=== PATIENT | female | born 1940 | race Caucasian/White ===

== ENCOUNTER 2020-04-23 13:28 | Observation (INO) | payer OTHER ==
--- NOTE | 2020-04-23 13:36 | PDOC ---
History of Present Illness - General Chief Complaint: Chest Pain Stated Complaint: CHEST PAIN Time Seen by Provider: 04/23/20 13:33 Past History - Medical History Allergies/Adverse Reactions: Allergies Allergy/AdvReac Type Severity Reaction Status Date / Time No Known Allergies Allergy Verified 04/23/20 13:35 Cardiac Disorders: Yes (MN in September 2019) COPD: No Diabetes: Yes HTN: Yes Hypercholesterolemia: Yes - Reproductive History Is Patient Now?: No - Psycho-Social/Smoking History Smoking History: Never smoked Information on smoking cessation initiated: No - Substance Abuse Hx (Audit-C & DAST Scrn) How often the patient has a drink containing alcohol: Never Score: In Men: 4 or > Positive; In Women: 3 or > Positive: 0 Screen Result (Pos requires Nsg. Audit-10AR): Negative In the last yr the pt used illegal drug/Rx for NonMed reason: No Score: Yes response is considered Positive: 0 Screen Result (Positive result requires Nsg. 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 Denies diaphoresis, N/V, N/T, weakness, SOB, cough, hx DVT/PE, tearing nature, radiation to back, headache, dizziness, recent travel, recent surgeries, immobilization, leg swelling, leg pain. Pt had 1 episode of stool incontinence yesterday (no hx incontinence) but has otherwise been in [place]. ROS: Constitutional: Negative for chills, fever, fatigue, diaphoresis. HENT: Negative for sore throat, rhinorrhea, congestion. Eyes: Negative for visual disturbance. Respiratory: Negative for shortness of breath, cough, and wheezing. Cardiovascular: Positive for chest pain. Negative for palpitations, and leg swelling. Gastrointestinal: Negative for abdominal pain, blood in stool, constipation, diarrhea, nausea, and vomiting. Genitourinary: Negative for dysuria, flank pain, and hematuria. Musculoskeletal: Negative for myalgias, back pain, and neck pain. Skin: Negative for rash. Neurological: Negative for light-headedness, dizziness, vertigo, syncope, weakness, numbness and headaches. Psychiatric/Behavioral: Positive for Alzheimer's. Negative for new behavioral problems and confusion. PE: Gen: Alert, NAD, comfortable-appearing. HEENT: PERRL, EOMI, MMM, NCAT. No conjunctival pallor. Sclera are non-icteric. Oropharynx is clear. CV: Regular rate and rhythm. +systolic murmur. No rubs, or gallops. PULM: No resp distress. Good air movement, faint crackles at b/l bases, no wheezes or rhonchi. ABD: soft, NT/ND, no rebound tenderness or guarding, no CVA tenderness. BACK: No TTP of c/t/l-spine. No step-offs or deformities. MSK: No bony deformities. 2+ pulses in all extremities. NEURO: AAOx3. PERRL. No gross CN deficits. Strength and sensation grossly intact throughout. Normal gait. EXTREMITIES: No cyanosis. No clubbing. No edema. No calf tenderness. PSYCH: Normal mood and thought pattern. SKIN: Warm and dry. Normal capillary refill. No rashes. No jaundice. MDM: 79yo F hx HTN, HLD, IDDM, Alzheimer's, and CAD s/p MN in 09/2019 (at [facility]; admitted; no cath or surgeries done) presents from home with daughter/HCP c/o substernal nonradiating pressure type nonexertional sudden onset at rest chest pain exactly same as prior CP when had MN in September. Hypertensive, otherwise hemodynamically stable, afebrile. Ddx: ACS/MN, arrhythmia, PNA (low concern due to lack of cough or SOB), dissection (low concern due to resolution of CP, equal BPs b/l arms, and lack of tearing quality or radiation to back), PE (low concern due to lack of RFs, SOB, tachycardia, hypoxia), infection, metabolic derangement, anemia, MSK -ASA -Tylenol -EKG -CXR -CBC,CMP,Coags,Cardiac profile,BNP,UA -COVID -Admit Pain resolved. BP 140s/50s in both arms. -d/c nitro 04/23/20 15:08 Labs reviewed. No concerning findings. Hyperglycemia -1L NS EKG reviewed: normal sinus rhythm, 88bpm, LBBB, no TWIs, no ST elevations or depressions, no priors for comparison CXR reviewed: No acute pathology Dr Espinoza called for admission Discharge - Discharge Information Problems reviewed: Yes Clinical Impression/Diagnosis: Chest pain Condition: Stable - Admission Yes - Follow up/Referral Referrals: Andrei Moreland MD [Primary Care Provider] - - Patient Discharge Instructions - Post Discharge Activity
[2020-04-23] MEDS ORDERED: NITROGLYCERIN SUBLINGUAL 1/150 0.4 MG TAB SL ONE ×2 (13:55→19:48)
[2020-04-23] MEDS ORDERED: ACETAMINOPHEN 1000 MG/100 ML VIAL (NON FORMULARY) IVPB ONE (13:55)
[2020-04-23] MEDS ORDERED: ASPIRIN 325 MG TABLET PO ONE (13:55)
[2020-04-23] MEDS ORDERED: ACETAMINOPHEN INJECTION 100 ML IVPB ONE (14:06)
[2020-04-23] MEDS ORDERED: ASPIRIN 81 MG CHEWABLE TABLETS ONE (14:06)
[2020-04-23 14:20] LABS: BASO % 0.4 % (0-2.0); EOS % 1.3 % (0-4.5); HEMATOCRIT 43.5 % (32.4-45.2); LYMPH % 18.2 % (8-40); MCH 28.4 pg (25.7-33.7); MCHC 32.1 g/dl (32.0-36.0); MEAN CELL VOLUME 88.4 fl (80-96); MONO % 6.7 % (3.8-10.2); NEUT % 73.4 % (42.8-82.8); PLATELET COUNT 287 K/MM3 (134-434); RBC 4.92 M/mm3 (3.60-5.2); RDW 14.9 % (11.6-15.6); WHITE BLOOD COUNT 10.1 K/mm3 (4.0-10.0)
[2020-04-23] MEDS ORDERED: ASPIRIN 81 MG CHEWABLE TABLETS PO ONE (14:21)
[2020-04-23 14:26] LABS: INR 0.92 (0.83-1.09); PROTHROMBIN TIME (PATIENT) 10.9 SEC (9.7-13.0)
[2020-04-23 14:29] LABS: ACTIVATED PTT 31.4 SECONDS (25.2-36.5)
--- NOTE | 2020-04-23 14:48 | PDOC ---
Documentation entered by Mj Talbert SCRIBE, acting as scribe for Claudia Burks MD. Claudia Burks MD: This documentation has been prepared by the Gali gonsales Xhesika, SCRIBE, under my direction and personally reviewed by me in its entirety. I confirm that the documentation accurately reflects all work, treatment, procedures, and medical decision making performed by me. 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 Pt describes her CP as 8/10 in severity, constant, feels like pressure, non-radiating. Pt states her symptoms are similar to her WV she had in September. Pt also reports 1 episode of stool incontinence yesterday, which is not her normal. The patient denies shortness of breath, headache and dizziness. Denies fever, chills, cough, nausea, vomiting, diarrhea and constipation. Denies dysuria, frequency, urgency and hematuria. Allergies: NKDA PCP: Dr. Moreland - Physicial Exam PE: 04/23/20 14:46 General: nontoxic appearing Chest: trace bibasilar crackles, good air entry, no audible wheezes, NAD CVS: + s1 s2, RRR - Medical Decision Making 04/23/20 14:47 79 yo F with chest pain, recent WV, EKG with LBBB (no priors for comparison), concern for ACS vs. PNA vs. msk pain. Plan: -labs -cxr -asa -tylenol -nitro -admit tele obs This clinical encounter is taking place during a federal and state health care emergency attributable to the novel [place] Virus pandemic. The Bread Racker of the Department of Health and Human Services has declared, pursuant to the Public Health Service Act 319F-3 (42 U.S.C. 247d-6d), that a covered persons activities related to medical countermeasures against COVID-19 will be immune from liability under Federal and State law. Discharge - Discharge Information Problems reviewed: Yes Clinical Impression/Diagnosis: Chest pain Condition: Stable - Follow up/Referral Referrals: Andrei Moreland MD [Primary Care Provider] - - Patient Discharge Instructions - Post Discharge Activity
[2020-04-23 14:56] LABS: BILIRUBIN,TOTAL 0.4 mg/dL (0.2-1); BLOOD UREA NITROGEN 20.3 mg/dL (7-18); CALCIUM 9.6 mg/dL (8.5-10.1); CREATININE 1.2 mg/dL (0.55-1.3); N-TERMINAL BNP 419.8 pg/ml (5-450); TOT PROT 7.9 g/dl (6.4-8.2)
[2020-04-23] MEDS ORDERED: SODIUM CHLORIDE 0.9% 500 ML INFUS.BAG IV ONE (15:16)
--- NOTE | 2020-04-23 17:10 | HP ---
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 Denies diaphoresis, N/V, N/T, weakness, SOB, cough, hx DVT/PE, tearing nature, radiation to back, headache, dizziness, recent travel, recent surgeries, immobilization, leg swelling, leg pain. Pt had 1 episode of stool incontinence yesterday (no hx incontinence) but has otherwise been in [facility]. 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) Cardiovascular: Yes: CAD, HTN, Hyperlipdemia ...: No Endocrine: Yes: Diabetes Mellitus - Smoking History Smoking history: Never smoked Home Medications - Allergies Allergies/Adverse Reactions: Allergies Allergy/AdvReac Type Severity Reaction Status Date / Time No Known Allergies Allergy Verified 04/23/20 13:35 - Home Medications Home Medications: Ambulatory Orders Alendronate Sodium [Binosto] 70 mg PO 04/24/20 Amlodipine Besylate 04/24/20 Aspirin [Lo-Dose Aspirin EC] 81 mg PO 04/24/20 Glipizide [Glipizide ER] 10 mg PO 04/24/20 Icosapent Ethyl [Vascepa] 1 gm PO 04/24/20 Linagliptin [Tradjenta] 5 mg PO 04/24/20 Lisinopril 5 mg PO 04/24/20 Memantine HCl 10 mg PO 04/24/20 Multivitamin [Tab-A-Aakash] 1 each PO 04/24/20 Omeprazole 40 mg PO 04/24/20 Acetaminophen [Tylenol .Regular Strength -] 650 mg PO Q4H PRN tablet 04/28/20 Atorvastatin Ca [Lipitor] 40 mg PO HS #30 tablet 04/28/20 Carvedilol [Coreg -] 6.25 mg PO BID #60 tablet 04/28/20 Ranolazine [Ranexa -] 500 mg PO BID #60 tab 04/28/20 Review of Systems - Review of Systems Constitutional: denies: Chills, Fever Cardiovascular: reports: Chest Pain. denies: Palpitations, Shortness of Breath Respiratory: denies: Cough, SOB, SOB on Exertion Physical Examination Vital Signs: Vital Signs Temperature 98.1 F 04/23/20 16:00 Pulse Rate 90 04/23/20 16:00 Respiratory Rate 16 04/23/20 16:00 Blood Pressure 143/60 04/23/20 16:00 O2 Sat by Pulse Oximetry (%) 98 04/23/20 16:00 Constitutional: Yes: No Distress, Calm Cardiovascular: Yes: Regular Rate and Rhythm Respiratory: Yes: CTA Bilaterally Gastrointestinal: Yes: Normal Bowel Sounds, Soft. No: Tenderness Edema: No Neurological: Yes: Alert, Oriented Labs: CBC, BMP 04/23/20 14:04 04/23/20 14:04 Imaging - Results Chest X-ray: Image Reviewed (congestion) EKG: Image Reviewed (NSR) Problem List - Problems (1) Chest pain Code(s): R07.9 - CHEST PAIN, UNSPECIFIED Qualifiers: Chest pain type: other chest pain Qualified Code(s): R07.89 - Other chest pain; R07.8 - Other chest pain (2) Coronary artery disease Code(s): I25.10 - ATHSCL HEART DISEASE OF [place] CORONARY ARTERY W/O ANG PCTRS Qualifiers: Coronary Disease-Associated Artery/Lesion type: [place] artery [place] vs. transplanted heart: [place] heart Associated angina: without angina Qualified Code(s): I25.10 - Atherosclerotic heart disease of [place] coronary artery without angina pectoris (3) Dementia Code(s): F03.90 - UNSPECIFIED DEMENTIA WITHOUT BEHAVIORAL DISTURBANCE Qualifiers: Dementia type: Alzheimer's disease Alzheimer's disease onset: unspecified onset Dementia behavioral disturbance: without behavioral disturbance Qualified Code(s): G30.9 - Alzheimer's disease, unspecified; F02.80 - Dementia in other diseases classified elsewhere without behavioral disturbance (4) Hyperlipidemia associated with type 2 diabetes mellitus Code(s): E11.69 - TYPE 2 DIABETES MELLITUS WITH OTHER SPECIFIED COMPLICATION; E78.5 - HYPERLIPIDEMIA, UNSPECIFIED (5) Ischemic cardiomyopathy Code(s): I25.5 - ISCHEMIC CARDIOMYOPATHY Assessment/Plan PLAN Trend cardiac enzymes Admit to telemetry resume her meds will consult Cardiology check lipid panel and TSH counselled pt on medication compliance
[2020-04-23] MEDS ORDERED: ACETAMINOPHEN 325 MG TABLET (FP) PO PRN (17:14)
[2020-04-23 17:21] VITALS: BMI 27.2
--- NOTE | 2020-04-23 17:21 | CON.CARD ---
Consult Consult Specialty:: Cardiology Referred by:: Delores Duarte MD Reason for Consultation:: Chest pain - History of Present Illness Chief Complaint: Chest pain History of Present Illness: The patient is a 79 year old female with a significant PMH of HTN heart disease, IDDM, HLD, dementia, chest pain R/O [place] admission at [facility] 10/05/2019 and found to have ischemic cardiomyopathy with LAD infarct who presents to the [facility] department for chest pain similar to September admission. The patient denies shortness of breath, near or true syncope, palpitations, orthopnea, PND or LE edema. BP elevated, has not been taking meds previously discharged from [facility]. - History Source History Provided By: Patient, Medical Record Limitations to Obtaining History: Dementia - Past Medical History ...: No - Smoking History Smoking history: Never smoked Home Medications - Allergies Allergies/Adverse Reactions: Allergies Allergy/AdvReac Type Severity Reaction Status Date / Time No Known Allergies Allergy Verified 04/23/20 13:35 Review of Systems - Review of Systems Cardiovascular: reports: Chest Pain Vital Signs: Vital Signs Temperature 98.1 F 04/23/20 16:00 Pulse Rate 90 04/23/20 16:00 Respiratory Rate 16 04/23/20 16:00 Blood Pressure 143/60 04/23/20 16:00 O2 Sat by Pulse Oximetry (%) 98 04/23/20 16:00 Constitutional: Yes: No Distress, Calm Neck: Yes: Supple Respiratory: Yes: Regular, CTA Bilaterally Gastrointestinal: Yes: Normal Bowel Sounds, Soft Cardiovascular: Yes: Regular Rate and Rhythm JVD: No Carotid Bruit: No Heart Sounds: Yes: S1, S2 Murmur: Yes: Systolic Murmur, Grade 1 Edema: No - Other Data Labs, Other Data: CBC, BMP 04/23/20 14:04 04/23/20 14:04 INR, PTT INR 0.92 (0.83-1.09) 04/23/20 14:04 Troponin, BNP 04/23/20 14:04 Troponin I 0.03 B-Natriuretic Peptide 419.8 Troponin, BNP 04/23/20 14:04 Troponin I 0.03 B-Natriuretic Peptide 419.8 NSR @ 88 LBBB, LAD similar to previous 10/03/2019 Ejection Fraction %: LVEF < 40 % Imaging - Results Chest X-ray: Report Reviewed (Borderline pulm vascularity) Problem List - Problems (1) Coronary artery disease Code(s): I25.10 - ATHSCL HEART DISEASE OF [place] CORONARY ARTERY W/O ANG PCTRS Qualifiers: Coronary Disease-Associated Artery/Lesion type: [place] artery [place] vs. transplanted heart: [place] heart Associated angina: without angina Qualified Code(s): I25.10 - Atherosclerotic heart disease of [place] coronary artery without angina pectoris (2) Ischemic cardiomyopathy Code(s): I25.5 - ISCHEMIC CARDIOMYOPATHY (3) Type 2 diabetes mellitus Code(s): E11.9 - TYPE 2 DIABETES MELLITUS WITHOUT COMPLICATIONS Qualifiers: Diabetes mellitus long wall mining machine tender insulin use: with long wall mining machine tender use Diabetes mellitus complication status: with circulatory complication Diabetes mellitus complication detail: with other circulatory complications Qualified Code(s): E11.59 - Type 2 diabetes mellitus with other circulatory complications; Z79.4 - alf (current) use of insulin (4) Hyperlipidemia associated with type 2 diabetes mellitus Code(s): E11.69 - TYPE 2 DIABETES MELLITUS WITH OTHER SPECIFIED COMPLICATION; E78.5 - HYPERLIPIDEMIA, UNSPECIFIED (5) Cerebrovascular disease Code(s): I67.9 - CEREBROVASCULAR DISEASE, UNSPECIFIED (6) Old anterior myocardial infarction Code(s): I25.2 - OLD MYOCARDIAL INFARCTION (7) Chest pain Code(s): R07.9 - CHEST PAIN, UNSPECIFIED Qualifiers: Chest pain type: other chest pain Qualified Code(s): R07.89 - Other chest pain; R07.8 - Other chest pain (8) Dementia Code(s): F03.90 - UNSPECIFIED DEMENTIA WITHOUT BEHAVIORAL DISTURBANCE Qualifiers: Dementia type: Alzheimer's disease Alzheimer's disease onset: unspecified onset Dementia behavioral disturbance: without behavioral disturbance Qualified Code(s): G30.9 - Alzheimer's disease, unspecified; F02.80 - Dementia in other diseases classified elsewhere without behavioral disturbance Assessment/Plan 10/05/2019 HCT: Age-indeterminate infarcts in the left basal ganglia/internal capsule, with small lacunar infarcts noted in the right anterior thalamus and right basal ganglia. No acute hemorrhage identified. 10/06/2019 [facility] Left ventricular systolic function is moderately reduced. The ejection fraction based on measurements and visual assessment is estimated to be 35-40%. There is moderate global hypokinesis of the left ventricle. There is anterolateral wall severe hypokinesis. There is septal wall severe hypokinesis. 1. Chest pain r/o [place] 2. CAD s/p anterior [place] 3. LV systolic dysfunction 4. Hypertensive heart disease 5. Dementia 6. Old lacunar strokes P:1. Ruling out [place], check TSH, Ha1c, fasting lipid panel 2. Resume carvedilol 3.125 bid, lisinopril 5 qd, ASA 81 qd, Lipitor 40 qd with uptitration as tolerated, emphasized importance of medication compliance 3. Given her dementia, will rx conservatively with meds 4. Thank you for consultative opportunity, november f/u in office
[2020-04-23] MEDS ORDERED: NITROGLYCERIN SUBLINGUAL 1/150 0.4 MG TAB ONE (19:48)
--- NOTE | 2020-04-23 19:54 | HOSP ---
Subjective - Review of Symptoms Events since last encounter: Hospitalist Encounter Notified by the RN that the patient c/o chest pain, was asked to assess Arrived to bedside, patient is awake, alert to name at baseline. c/o chest pain midsternum Patient examined see EMR Plan: EKG- stat Troponin I Nitroglycerin sl Cardiovascular: Yes: Chest Pain Physical Examination Vital Signs: Vital Signs Temperature 98.5 F 04/23/20 18:00 Pulse Rate 89 04/23/20 18:00 Respiratory Rate 17 04/23/20 18:00 Blood Pressure 153/76 04/23/20 18:00 O2 Sat by Pulse Oximetry (%) 98 04/23/20 18:00 Constitutional: Yes: Well Nourished, Mild Distress Eyes: Yes: Conjunctiva Clear, EOM Intact, PERRL HENT: Yes: Atraumatic, Normocephalic Neck: Yes: Supple, Trachea Midline Cardiovascular: Yes: Regular Rate and Rhythm, Murmur, S1, S2, Other (CP is reproducible to palpation) Respiratory: Yes: Regular, CTA Bilaterally, On Nasal O2 Gastrointestinal: Yes: Normal Bowel Sounds, Soft ...Rectal Exam: Yes: Deferred Renal/: Yes: Incontinence Breast(s): Yes: WNL Musculoskeletal: Yes: WNL Extremities: Yes: WNL Edema: No Peripheral Pulses WNL: Yes Neurological: Yes: Confusion ...Motor Strength: WNL Psychiatric: Yes: Alert (to name) Labs: CBC, BMP 04/23/20 14:04 04/23/20 14:04 Troponin, BNP 04/23/20 14:04 Troponin I 0.03 B-Natriuretic Peptide 419.8 Current Medications Generic Name Dose Route Start Last Admin Trade Name Freq PRN Reason Stop Dose Admin Acetaminophen 650 mg 04/23/20 17:14 Tylenol - PO Q4H PRN PAIN LEVEL 4 - 6 Aspirin 81 mg 04/24/20 10:00 Asa - PO DAILY [facility] Atorvastatin Calcium 80 mg 04/23/20 22:00 Lipitor - PO HS [facility] Carvedilol 3.125 mg 04/23/20 22:00 Coreg - PO BID [facility] Lisinopril 5 mg 04/24/20 10:00 Prinivil PO DAILY [facility] Pantoprazole Sodium 40 mg 04/24/20 10:00 Protonix - PO DAILY [facility] Hospitalist Encounter Outcome: EKG reviewed- NSR, lAD with LBBBB QTC 508, no change compared to prior study Troponin I- 0.17 Per RN patient denies CP post medication Will continue to monitor, Cardiology following, PMD to resume care in am Critical Care Total Critical Care Time (in minutes): 35 Critical Care Statement: The care of this patient involved high complexity decision making to prevent further life threatening deterioration of the patient's condition and/or to evaluate & treat vital organ system(s) failure or risk of failure.
[2020-04-23] MEDS: ATORVASTATIN CA 80 MG TABLET (FP) PO SCH (21:11)
[2020-04-23] MEDS: CARVEDILOL 3.125 MG TABLET (FP) PO SCH (21:11)
[2020-04-24] MEDS ORDERED: NITROGLYCERIN SUBLINGUAL 1/150 0.4 MG TAB ONE (06:23)
[2020-04-24 06:59] LABS: BASO % 0.5 % (0-2.0); EOS % 2.3 % (0-4.5); HEMATOCRIT 38.4 % (32.4-45.2); HEMOGLOBIN 12.3 GM/dL (10.7-15.3); LYMPH % 24.7 % (8-40); MCH 28.3 pg (25.7-33.7); MCHC 32.1 g/dl (32.0-36.0); MEAN CELL VOLUME 88.4 fl (80-96); MEAN PLT VOLUME 8.6 fl (7.5-11.1); MONO % 8.6 % (3.8-10.2); NEUT % 63.9 % (42.8-82.8); PLATELET COUNT 258 K/MM3 (134-434); RBC 4.35 M/mm3 (3.60-5.2); RDW 15.1 % (11.6-15.6)
[2020-04-24 07:31] LABS: POTASSIUM 4.1 mmol/L (3.5-5.1)
[2020-04-24 07:50] LABS: ALBUMIN 3.1 g/dl (3.4-5.0); BILIRUBIN,TOTAL 0.4 mg/dL (0.2-1); BLOOD UREA NITROGEN 18.1 mg/dL (7-18); CREATININE 0.9 mg/dL (0.55-1.3); TOT PROT 6.2 g/dl (6.4-8.2)
[2020-04-24 07:54] LABS: EPI CELLS >36 /uL (0-25.1); HYALINE CASTS 8 /uL (0-3.1); URINE APPEARANCE TURBID; URINE BACTERIA >9,000 /uL (0-1359); URINE BILIRUBIN NEGATIVE (NEGATIVE); URINE COLOR YELLOW; URINE GLUCOSE (UA) 2+ (NEGATIVE); URINE KETONE NEGATIVE (NEGATIVE); URINE LEUK ESTERASE 1+ (NEGATIVE); URINE NITRITE NEGATIVE (NEGATIVE); URINE PROTEIN TRACE (NEGATIVE); URINE RBC 1 /uL (0-23.9); URINE UROBILINOGEN 0.2 mg/dL (0.2-1.0); URINE WBC 62 /uL (0-25.8)
[2020-04-24 08:26] LABS: YEAST NON SEEN (NEGATIVE)
--- NOTE | 2020-04-24 08:39 | PN ---
Progress Note, Physician History of Present Illness: NTG-responsive chest pain overnight with elevated BP, had not started beta- blockers at that point. She denies chest pain or dyspnea today. - Current Medication List Current Medications: Active Medications Acetaminophen (Tylenol -) 650 mg PO Q4H PRN PRN Reason: PAIN LEVEL 4 - 6 Aspirin (Asa -) 81 mg PO DAILY [facility] Atorvastatin Calcium (Lipitor -) 80 mg PO HS [facility] Last Admin: 04/23/20 21:11 Dose: 80 mg Documented by: Carvedilol (Coreg -) 3.125 mg PO BID [facility] Last Admin: 04/23/20 21:11 Dose: 3.125 mg Documented by: Lisinopril (Prinivil) 5 mg PO DAILY [facility] Pantoprazole Sodium (Protonix -) 40 mg PO DAILY [facility] - Objective Vital Signs: Vital Signs Temperature 98.4 F 04/24/20 06:00 Pulse Rate 79 04/24/20 06:00 Respiratory Rate 20 04/24/20 06:00 Blood Pressure 155/85 04/24/20 06:00 O2 Sat by Pulse Oximetry (%) 95 04/24/20 06:00 Constitutional: Yes: No Distress, Calm Neck: Yes: Supple Cardiovascular: Yes: Regular Rate and Rhythm Respiratory: Yes: Regular, CTA Bilaterally Gastrointestinal: Yes: Normal Bowel Sounds, Soft Edema: No Labs: CBC, BMP 04/24/20 06:00 04/24/20 06:24 INR, PTT INR 0.92 (0.83-1.09) 04/23/20 14:04 - ....Imaging EKG: Report Reviewed (Tele: NSR ECG: NSR @ 84, LAE, LBBB) Problem List - Problems (1) Coronary artery disease Code(s): I25.10 - ATHSCL HEART DISEASE OF [place] CORONARY ARTERY W/O ANG PCTRS Qualifiers: Coronary Disease-Associated Artery/Lesion type: [place] artery [place] vs. transplanted heart: [place] heart Associated angina: without angina Qualified Code(s): I25.10 - Atherosclerotic heart disease of [place] coronary artery without angina pectoris (2) Ischemic cardiomyopathy Code(s): I25.5 - ISCHEMIC CARDIOMYOPATHY (3) Type 2 diabetes mellitus Code(s): E11.9 - TYPE 2 DIABETES MELLITUS WITHOUT COMPLICATIONS Qualifiers: Diabetes mellitus local company intermodal truck driver insulin use: with chcf use Diabetes mellitus complication status: with circulatory complication Diabetes mellitus complication detail: with other circulatory complications Qualified Code(s): E11.59 - Type 2 diabetes mellitus with other circulatory complications; Z79.4 - lobsterman (current) use of insulin (4) Hyperlipidemia associated with type 2 diabetes mellitus Code(s): E11.69 - TYPE 2 DIABETES MELLITUS WITH OTHER SPECIFIED COMPLICATION; E78.5 - HYPERLIPIDEMIA, UNSPECIFIED (5) Cerebrovascular disease Code(s): I67.9 - CEREBROVASCULAR DISEASE, UNSPECIFIED (6) Old anterior myocardial infarction Code(s): I25.2 - OLD MYOCARDIAL INFARCTION (7) Chest pain Code(s): R07.9 - CHEST PAIN, UNSPECIFIED Qualifiers: Chest pain type: other chest pain Qualified Code(s): R07.89 - Other chest pain; R07.8 - Other chest pain (8) Dementia Code(s): F03.90 - UNSPECIFIED DEMENTIA WITHOUT BEHAVIORAL DISTURBANCE Qualifiers: Dementia type: Alzheimer's disease Alzheimer's disease onset: unspecified onset Dementia behavioral disturbance: without behavioral disturbance Qualified Code(s): G30.9 - Alzheimer's disease, unspecified; F02.80 - Dementia in other diseases classified elsewhere without behavioral disturbance Assessment/Plan 10/05/2019 HCT: Age-indeterminate infarcts in the left basal ganglia/internal capsule, with small lacunar infarcts noted in the right anterior thalamus and right basal ganglia. No acute hemorrhage identified. 10/06/2019 Echo @ [facility] Left ventricular systolic function is moderately reduced. The ejection fraction based on measurements and visual assessment is estimated to be 35-40%. There is moderate global hypokinesis of the left ventricle. There is anterolateral wall severe hypokinesis. There is septal wall severe hypokinesis. 1. Chest pain with demand [place] 2. CAD s/p anterior [place] 3. LV systolic dysfunction 4. Hypertensive heart disease, BP not at goal 5. Dementia 6. Old lacunar strokes 7. Type 2 DM not at goal control P:1. Trend trops to document peak 2. Resumed carvedilol 3.125 bid, lisinopril 5 qd, ASA 81 qd, Lipitor 40 qd with uptitration as tolerated, emphasized importance of medication compliance 3. Start Farxiga 10 qd given DM and cardiomyopathy, was on Lantus 15 U qd and Lispro TID AC at [facility] 3. Given her dementia, will rx conservatively with meds 4. Thank you for consultative opportunity, november f/u in office
--- NOTE | 2020-04-24 09:54 | EKG ---
Test Reason : Blood Pressure : / mmHG Vent. Rate : 088 BPM Atrial Rate : 088 BPM P-R Int : 160 ms QRS Dur : 134 ms QT Int : 394 ms P-R-T Axes : 053 -44 109 degrees QTc Int : 476 ms NORMAL SINUS RHYTHM LEFT AXIS DEVIATION LEFT BUNDLE BRANCH BLOCK ABNORMAL ECG NO PREVIOUS ECGS AVAILABLE Confirmed by ISABELA DUVAL MD ([id number]) on 04/24/2020 9:53:49 AM Referred By: Confirmed By:ISABELA DUVAL MD
--- NOTE | 2020-04-24 09:55 | EKG ---
Test Reason : Blood Pressure : / mmHG Vent. Rate : 084 BPM Atrial Rate : 084 BPM P-R Int : 170 ms QRS Dur : 132 ms QT Int : 430 ms P-R-T Axes : 054 -38 116 degrees QTc Int : 508 ms POOR DATA QUALITY, INTERPRETATION MAY BE ADVERSELY AFFECTED NORMAL SINUS RHYTHM LEFT AXIS DEVIATION LEFT BUNDLE BRANCH BLOCK ABNORMAL ECG WHEN COMPARED WITH ECG OF 23-APR-2020 13:34, NO SIGNIFICANT CHANGE WAS FOUND Confirmed by ISABELA DUVAL MD ([id number]) on 04/24/2020 9:54:24 AM Referred By: ANSHUL Confirmed By:ISABELA DUVAL MD
[2020-04-24] MEDS ORDERED: LISINOPRIL 5 MG TABLET PO SCH (10:00)
[2020-04-24] MEDS ORDERED: PT OWN MED DRAWER 7, Y5N ONE (10:24)
[2020-04-24] MEDS: CARVEDILOL 3.125 MG TABLET (FP) PO SCH (10:28)
[2020-04-24] MEDS: ASPIRIN 81 MG CHEWABLE TABLETS PO SCH (10:28)
[2020-04-24] MEDS: PANTOPRAZOLE 40 MG TABLET PO SCH (10:28)
[2020-04-24] MEDS: INSULIN SLIDING SCALE (NOVOLOG) 1 VIAL SQ SCH ×2 (12:10→17:33)
--- NOTE | 2020-04-24 12:16 | PN ---
Progress Note (short form) - Note Progress Note: had chest pain last night\ currently no pain no sob she is comfortable Vital Signs - 24 hr 04/23/20 04/23/20 04/23/20 13:30 13:31 14:20 Temperature 98.8 F Pulse Rate 93 H Pulse Rate [ 80 Apical] Respiratory 19 18 Rate Blood Pressure 203/88 H Blood Pressure 147/55 L [Left Arm] O2 Sat by Pulse 98 94 L 98 Oximetry (%) 04/23/20 04/23/20 04/23/20 16:00 17:14 18:00 Temperature 98.1 F 98.7 F 98.5 F Pulse Rate 86 89 Pulse Rate [ 90 Apical] Respiratory 16 16 17 Rate Blood Pressure 153/89 153/76 Blood Pressure 143/60 [Left Arm] O2 Sat by Pulse 98 98 98 Oximetry (%) 04/23/20 04/23/20 04/23/20 20:00 21:00 22:00 Temperature 98.5 F Pulse Rate 86 88 Pulse Rate [ Apical] Respiratory 20 Rate Blood Pressure 171/77 H 119/68 Blood Pressure [Left Arm] O2 Sat by Pulse 98 98 Oximetry (%) 04/24/20 04/24/20 04/24/20 01:57 06:00 10:00 Temperature 98.5 F 98.4 F 99 F Pulse Rate 84 79 90 Pulse Rate [ Apical] Respiratory 20 20 18 Rate Blood Pressure 141/74 155/85 150/100 Blood Pressure [Left Arm] O2 Sat by Pulse 94 L 95 95 Oximetry (%) Current Medications Generic Name Dose Route Start Last Admin Trade Name Freq PRN Reason Stop Dose Admin Acetaminophen 650 mg 04/23/20 17:14 Tylenol - PO Q4H PRN PAIN LEVEL 4 - 6 Aspirin 81 mg 04/24/20 10:00 04/24/20 10:28 Asa - PO 81 mg DAILY TELLO Administration Atorvastatin Calcium 80 mg 04/23/20 22:00 04/23/20 21:11 Lipitor - PO 80 mg HS TELLO Administration Carvedilol 6.25 mg 04/24/20 11:51 Coreg - PO BID TELLO Insulin Aspart 1 vial 04/24/20 11:00 04/24/20 12:10 Novolog Vial Sliding Scale - SQ 2 units TIDAC TELLO Administration Protocol Insulin Detemir 10 units 04/24/20 22:00 Levemir Vial SQ BID@0700,2200 [facility] Lisinopril 5 mg 04/24/20 10:00 04/24/20 10:28 Prinivil PO 5 mg DAILY TELLO Administration Pantoprazole Sodium 40 mg 04/24/20 10:00 04/24/20 10:28 Protonix - PO 40 mg DAILY TELLO Administration Laboratory Results - last 24 hr 04/23/20 04/23/20 04/23/20 14:04 14:04 14:04 WBC 10.1 H RBC 4.92 Hgb 14.0 Hct 43.5 MCV 88.4 MCH 28.4 MCHC 32.1 RDW 14.9 Plt Count 287 MPV 9.0 Absolute Neuts (auto) 7.4 Neutrophils % 73.4 Lymphocytes % 18.2 Monocytes % 6.7 Eosinophils % 1.3 Basophils % 0.4 Nucleated RBC % 0 PT with INR 10.90 INR 0.92 PTT (Actin FS) 31.4 Sodium 144 Potassium 5.0 Chloride 108 H Carbon Dioxide 28 Anion Gap 8 BUN 20.3 H Creatinine 1.2 Est GFR (CKD-EPI)AfAm 50.48 Est GFR (CKD-EPI)NonAf 43.56 POC Glucometer Random Glucose 302 H Hemoglobin A1c % Calcium 9.6 Total Bilirubin 0.4 AST 16 ALT 20 Alkaline Phosphatase 71 Creatine Kinase 66 Troponin I 0.03 B-Natriuretic Peptide 419.8 Total Protein 7.9 Albumin 4.0 Triglycerides Cholesterol Total LDL Cholesterol HDL Cholesterol TSH Urine Color Urine Appearance Urine pH Ur Specific [place] Urine Protein Urine Glucose (UA) Urine Ketones Urine Blood Urine Nitrite Urine Bilirubin Urine Urobilinogen Ur Leukocyte Esterase Urine WBC (Auto) Urine RBC (Auto) Urine Casts (Auto) U Epithel Cells (Auto) U Sm Round Cell (Auto) Urine Bacteria (Auto) Urine Yeast (Auto) 04/23/20 04/23/20 04/24/20 19:20 20:00 06:00 WBC RBC Hgb Hct MCV MCH MCHC RDW Plt Count MPV Absolute Neuts (auto) Neutrophils % Lymphocytes % Monocytes % Eosinophils % Basophils % Nucleated RBC % PT with INR INR PTT (Actin FS) Sodium Potassium Chloride Carbon Dioxide Anion Gap BUN Creatinine Est GFR (CKD-EPI)AfAm Est GFR (CKD-EPI)NonAf POC Glucometer Random Glucose Hemoglobin A1c % Calcium Total Bilirubin AST ALT Alkaline Phosphatase Creatine Kinase 63 69 Troponin I 0.15 H 0.17 H B-Natriuretic Peptide Total Protein Albumin Triglycerides Cholesterol Total LDL Cholesterol HDL Cholesterol TSH Urine Color Yellow Urine Appearance Turbid Urine pH 5.0 Ur Specific [place] 1.018 Urine Protein Trace Urine Glucose (UA) 2+ H Urine Ketones Negative Urine Blood Negative Urine Nitrite Negative Urine Bilirubin Negative Urine Urobilinogen 0.2 Ur Leukocyte Esterase 1+ H Urine WBC (Auto) 62 Urine RBC (Auto) 1 Urine Casts (Auto) 8 U Epithel Cells (Auto) >36 U Sm Round Cell (Auto) Non seen Urine Bacteria (Auto) >9,000 Urine Yeast (Auto) Non seen 04/24/20 04/24/20 04/24/20 06:00 06:24 06:24 WBC 8.0 RBC 4.35 Hgb 12.3 Hct 38.4 MCV 88.4 MCH 28.3 MCHC 32.1 RDW 15.1 Plt Count 258 MPV 8.6 Absolute Neuts (auto) 5.1 Neutrophils % 63.9 Lymphocytes % 24.7 D Monocytes % 8.6 Eosinophils % 2.3 Basophils % 0.5 Nucleated RBC % 0 PT with INR INR PTT (Actin FS) Sodium 139 Potassium 4.1 Chloride 105 Carbon Dioxide 25 Anion Gap 9 BUN 18.1 H Creatinine 0.9 Est GFR (CKD-EPI)AfAm 71.48 Est GFR (CKD-EPI)NonAf 61.67 POC Glucometer Random Glucose 136 H Hemoglobin A1c % 9.0 H Calcium 9.0 Total Bilirubin 0.4 AST 17 ALT 17 Alkaline Phosphatase 53 Creatine Kinase Troponin I B-Natriuretic Peptide Total Protein 6.2 L Albumin 3.1 L Triglycerides 223 H Cholesterol 164 Total LDL Cholesterol 106 H HDL Cholesterol 31 L TSH 2.19 Urine Color Urine Appearance Urine pH Ur Specific [place] Urine Protein Urine Glucose (UA) Urine Ketones Urine Blood Urine Nitrite Urine Bilirubin Urine Urobilinogen Ur Leukocyte Esterase Urine WBC (Auto) Urine RBC (Auto) Urine Casts (Auto) U Epithel Cells (Auto) U Sm Round Cell (Auto) Urine Bacteria (Auto) Urine Yeast (Auto) 04/24/20 12:09 WBC RBC Hgb Hct MCV MCH MCHC RDW Plt Count MPV Absolute Neuts (auto) Neutrophils % Lymphocytes % Monocytes % Eosinophils % Basophils % Nucleated RBC % PT with INR INR PTT (Actin FS) Sodium Potassium Chloride Carbon Dioxide Anion Gap BUN Creatinine Est GFR (CKD-EPI)AfAm Est GFR (CKD-EPI)NonAf POC Glucometer 245 Random Glucose Hemoglobin A1c % Calcium Total Bilirubin AST ALT Alkaline Phosphatase Creatine Kinase Troponin I B-Natriuretic Peptide Total Protein Albumin Triglycerides Cholesterol Total LDL Cholesterol HDL Cholesterol TSH Urine Color Urine Appearance Urine pH Ur Specific [place] Urine Protein Urine Glucose (UA) Urine Ketones Urine Blood Urine Nitrite Urine Bilirubin Urine Urobilinogen Ur Leukocyte Esterase Urine WBC (Auto) Urine RBC (Auto) Urine Casts (Auto) U Epithel Cells (Auto) U Sm Round Cell (Auto) Urine Bacteria (Auto) Urine Yeast (Auto) s1 s2 RRR Lungs clear No chest wall tenderness Abd- soft, NT no edema PLAN chest pain - relieved with NTG tropinins are flat trend troponins resume her meds-- pt is non compliant with the new meds that she was discharged with from [facility] resume insulin check 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 transplanted heart: [place] heart Associated angina: without angina Qualified Code(s): I25.10 - Atherosclerotic heart disease of [place] coronary artery without angina pectoris (3) Hyperlipidemia associated with type 2 diabetes mellitus Code(s): E11.69 - TYPE 2 DIABETES MELLITUS WITH OTHER SPECIFIED COMPLICATION; E78.5 - HYPERLIPIDEMIA, UNSPECIFIED (4) Type 2 diabetes mellitus Code(s): E11.9 - TYPE 2 DIABETES MELLITUS WITHOUT COMPLICATIONS Qualifiers: Diabetes mellitus termite technician insulin use: with fci use Diabetes mellitus complication status: with circulatory complication Diabetes mellitus complication detail: with other circulatory complications Qualified Code(s): E11.59 - Type 2 diabetes mellitus with other circulatory complications; Z79.4 - intermediate (current) use of insulin
[2020-04-24] MEDS: NITROGLYCERIN 2% OINTMENT - 1GM PACKET TD SCH ×2 (17:34→23:47)
[2020-04-24] MEDS: CARVEDILOL 6.25 MG TABLET (FP) PO SCH (21:30)
[2020-04-24] MEDS: ATORVASTATIN CA 80 MG TABLET (FP) PO SCH (21:31)
[2020-04-24] MEDS: RANOLAZINE E.R. 500 MG TABLET (FP) PO SCH (21:31)
[2020-04-24] MEDS: INSULIN (LEVEMIR) 100 UNITS/ML UNITS SQ SCH (21:33)
[2020-04-25] MEDS: NITROGLYCERIN 2% OINTMENT - 1GM PACKET TD SCH ×2 (06:23→12:52)
[2020-04-25] MEDS: INSULIN (LEVEMIR) 100 UNITS/ML UNITS SQ SCH ×2 (06:27→22:26)
[2020-04-25] MEDS: INSULIN SLIDING SCALE (NOVOLOG) 1 VIAL SQ SCH ×3 (06:28→17:15)
--- NOTE | 2020-04-25 08:49 | PN ---
Progress Note, Physician History of Present Illness: Low grade fever, no further recurrence of NTG-responsive chest pain with improved BP control and addition of Ranexa. She denies chest pain or dyspnea today. - Current Medication List Current Medications: Active Medications Acetaminophen (Tylenol -) 650 mg PO Q4H PRN PRN Reason: PAIN LEVEL 4 - 6 Aspirin (Asa -) 81 mg PO DAILY [facility] Last Admin: 04/24/20 10:28 Dose: 81 mg Documented by: Atorvastatin Calcium (Lipitor -) 80 mg PO HS [facility] Last Admin: 04/24/20 21:31 Dose: 80 mg Documented by: Carvedilol (Coreg -) 6.25 mg PO BID [facility] Last Admin: 04/24/20 21:30 Dose: 6.25 mg Documented by: Insulin Aspart (Novolog Vial Sliding Scale -) 1 vial SQ TIDAC [facility]; Protocol Last Admin: 04/25/20 06:28 Dose: 2 units Documented by: Insulin Detemir (Levemir Vial) 10 units SQ BID@0700,2200 [facility] Last Admin: 04/25/20 06:27 Dose: 10 unit Documented by: Lisinopril (Prinivil) 5 mg PO DAILY [facility] Last Admin: 04/24/20 10:28 Dose: 5 mg Documented by: Nitroglycerin (Nitro-Bid 2% Paste -) 1 inch TD Q6HPO [facility] Last Admin: 04/25/20 06:23 Dose: 1 inch Documented by: Pantoprazole Sodium (Protonix -) 40 mg PO DAILY [facility] Last Admin: 04/24/20 10:28 Dose: 40 mg Documented by: Ranolazine (Ranexa -) 500 mg PO BID [facility] Last Admin: 04/24/20 21:31 Dose: 500 mg Documented by: - Objective Vital Signs: Vital Signs Temperature 100.2 F H 04/25/20 06:00 Pulse Rate 90 04/25/20 06:00 Respiratory Rate 18 04/25/20 06:00 Blood Pressure 157/64 04/25/20 06:00 O2 Sat by Pulse Oximetry (%) 94 L 04/25/20 06:00 Constitutional: Yes: No Distress, Calm Neck: Yes: Supple Cardiovascular: Yes: Regular Rate and Rhythm Respiratory: Yes: Regular, CTA Bilaterally Gastrointestinal: Yes: Normal Bowel Sounds, Soft Edema: No Labs: CBC, BMP 04/24/20 06:00 04/24/20 06:24 INR, PTT INR 0.92 (0.83-1.09) 04/23/20 14:04 - ....Imaging EKG: Report Reviewed (Tele: NSR) Problem List - Problems (1) Coronary artery disease Code(s): I25.10 - ATHSCL HEART DISEASE OF [place] CORONARY ARTERY W/O ANG PCTRS Qualifiers: Coronary Disease-Associated Artery/Lesion type: [place] artery [place] vs. transplanted heart: [place] heart Associated angina: without angina Qualified Code(s): I25.10 - Atherosclerotic heart disease of [place] coronary artery without angina pectoris (2) Ischemic cardiomyopathy Code(s): I25.5 - ISCHEMIC CARDIOMYOPATHY (3) Type 2 diabetes mellitus Code(s): E11.9 - TYPE 2 DIABETES MELLITUS WITHOUT COMPLICATIONS Qualifiers: Diabetes mellitus termite control servicer insulin use: with termite control servicer use Diabetes mellitus complication status: with circulatory complication Diabetes mellitus complication detail: with other circulatory complications Qualified Code(s): E11.59 - Type 2 diabetes mellitus with other circulatory complications; Z79.4 - termite control servicer (current) use of insulin (4) Hyperlipidemia associated with type 2 diabetes mellitus Code(s): E11.69 - TYPE 2 DIABETES MELLITUS WITH OTHER SPECIFIED COMPLICATION; E78.5 - HYPERLIPIDEMIA, UNSPECIFIED (5) Cerebrovascular disease Code(s): I67.9 - CEREBROVASCULAR DISEASE, UNSPECIFIED (6) Old anterior myocardial infarction Code(s): I25.2 - OLD MYOCARDIAL INFARCTION (7) Chest pain Code(s): R07.9 - CHEST PAIN, UNSPECIFIED Qualifiers: Chest pain type: other chest pain Qualified Code(s): R07.89 - Other chest pain; R07.8 - Other chest pain (8) Dementia Code(s): F03.90 - UNSPECIFIED DEMENTIA WITHOUT BEHAVIORAL DISTURBANCE Qualifiers: Dementia type: Alzheimer's disease Alzheimer's disease onset: unspecified onset Dementia behavioral disturbance: without behavioral disturbance Qualified Code(s): G30.9 - Alzheimer's disease, unspecified; F02.80 - Dementia in other diseases classified elsewhere without behavioral disturbance Assessment/Plan 10/05/2019 HCT: Age-indeterminate infarcts in the left basal ganglia/internal capsule, with small lacunar infarcts noted in the right anterior thalamus and right basal ganglia. No acute hemorrhage identified. 10/06/2019 Echo @ [facility] Left ventricular systolic function is moderately reduced. The ejection fraction based on measurements and visual assessment is estimated to be 35-40%. There is moderate global hypokinesis of the left ventricle. There is anterolateral wall severe hypokinesis. There is septal wall severe hypokinesis. 1. Chest pain with demand [place] 2. CAD s/p anterior SD 3. LV systolic dysfunction 4. Hypertensive heart disease, BP improved 5. Dementia 6. Old lacunar strokes 7. Type 2 DM not at goal control 8. UTI P:1. Trend trops to document peak 2. Increased carvedilol 6.25 bid, lisinopril 10 qd, ASA 81 qd, Lipitor 40 qd with uptitration as tolerated, Ranexa 500 bid added, emphasized importance of medication compliance, d/c NTP 3. Start Farxiga 10 qd given DM and cardiomyopathy, was on Lantus 15 U qd and Lispro TID AC at [facility] 3. Given her dementia, will rx conservatively with meds 4. Abx course for UTI 5. Thank you for consultative opportunity, november f/u in office
[2020-04-25] MEDS: PANTOPRAZOLE 40 MG TABLET PO SCH (09:14)
[2020-04-25] MEDS: ASPIRIN 81 MG CHEWABLE TABLETS PO SCH (09:14)
[2020-04-25] MEDS: CARVEDILOL 6.25 MG TABLET (FP) PO SCH ×2 (09:15→22:26)
[2020-04-25] MEDS: RANOLAZINE E.R. 500 MG TABLET (FP) PO SCH ×2 (09:18→22:26)
[2020-04-25] MEDS: LISINOPRIL 10 MG TABLET PO SCH (09:18)
--- NOTE | 2020-04-25 10:42 | PN ---
Progress Note, Physician History of Present Illness: Pt seen/ examined chart reviewed awake/ comfortable low grade temp last night u/a ++ for uti-- will start on abx - Current Medication List Current Medications: Active Medications Acetaminophen (Tylenol -) 650 mg PO Q4H PRN PRN Reason: PAIN LEVEL 4 - 6 Aspirin (Asa -) 81 mg PO DAILY [facility] Last Admin: 04/25/20 09:14 Dose: 81 mg Documented by: Atorvastatin Calcium (Lipitor -) 80 mg PO HS [facility] Last Admin: 04/24/20 21:31 Dose: 80 mg Documented by: Carvedilol (Coreg -) 6.25 mg PO BID [facility] Last Admin: 04/25/20 09:15 Dose: 6.25 mg Documented by: Insulin Aspart (Novolog Vial Sliding Scale -) 1 vial SQ TIDAC [facility]; Protocol Last Admin: 04/25/20 06:28 Dose: 2 units Documented by: Insulin Detemir (Levemir Vial) 10 units SQ BID@0700,2200 [facility] Last Admin: 04/25/20 06:27 Dose: 10 unit Documented by: Lisinopril (Prinivil) 10 mg PO DAILY [facility] Last Admin: 04/25/20 09:18 Dose: 10 mg Documented by: Nitroglycerin (Nitro-Bid 2% Paste -) 1 inch TD Q6HPO [facility] Last Admin: 04/25/20 06:23 Dose: 1 inch Documented by: Pantoprazole Sodium (Protonix -) 40 mg PO DAILY [facility] Last Admin: 04/25/20 09:14 Dose: 40 mg Documented by: Ranolazine (Ranexa -) 500 mg PO BID [facility] Last Admin: 04/25/20 09:18 Dose: 500 mg Documented by: - Objective Vital Signs: Vital Signs Temperature 98.9 F 04/25/20 09:13 Pulse Rate 98 H 04/25/20 09:13 Respiratory Rate 19 04/25/20 09:13 Blood Pressure 124/85 04/25/20 09:13 O2 Sat by Pulse Oximetry (%) 95 04/25/20 09:13 Constitutional: Yes: No Distress Neck: Yes: Supple Cardiovascular: Yes: Regular Rate and Rhythm Respiratory: Yes: CTA Bilaterally Gastrointestinal: Yes: Soft Edema: No Neurological: Yes: Alert Labs: CBC, BMP 04/24/20 06:00 04/24/20 06:24 INR, PTT INR 0.92 (0.83-1.09) 04/23/20 14:04 Problem List - Problems (1) UTI (urinary tract infection) Code(s): N39.0 - URINARY TRACT INFECTION, SITE NOT SPECIFIED (2) Chest pain Code(s): R07.9 - CHEST PAIN, UNSPECIFIED Qualifiers: Chest pain type: other chest pain Qualified Code(s): R07.89 - Other chest pain; R07.8 - Other chest pain (3) Coronary artery disease Code(s): I25.10 - ATHSCL HEART DISEASE OF [place] CORONARY ARTERY W/O ANG PCTRS Qualifiers: Coronary Disease-Associated Artery/Lesion type: [place] artery [place] vs. transplanted heart: [place] heart Associated angina: without angina Qualified Code(s): I25.10 - Atherosclerotic heart disease of [place] coronary artery without angina pectoris (4) Dementia Code(s): F03.90 - UNSPECIFIED DEMENTIA WITHOUT BEHAVIORAL DISTURBANCE Qualifiers: Dementia type: Alzheimer's disease Alzheimer's disease onset: unspecified onset Dementia behavioral disturbance: without behavioral disturbance Qualified Code(s): G30.9 - Alzheimer's disease, unspecified; F02.80 - Dementia in other diseases classified elsewhere without behavioral disturbance (5) Hyperlipidemia associated with type 2 diabetes mellitus Code(s): E11.69 - TYPE 2 DIABETES MELLITUS WITH OTHER SPECIFIED COMPLICATION; E78.5 - HYPERLIPIDEMIA, UNSPECIFIED (6) Ischemic cardiomyopathy Code(s): I25.5 - ISCHEMIC CARDIOMYOPATHY (7) Type 2 diabetes mellitus Code(s): E11.9 - TYPE 2 DIABETES MELLITUS WITHOUT COMPLICATIONS Qualifiers: Diabetes mellitus prison insulin use: with prison use Diabetes mellitus complication status: with circulatory complication Diabetes mellitus complication detail: with other circulatory complications Qualified Code(s): E11.59 - Type 2 diabetes mellitus with other circulatory complications; Z79.4 - artificial limb fitter (current) use of insulin Assessment/Plan Continue present care discussed with nursing horta send urine culture start on abx monitor bgm Add dvt prophylaxis will follow
[2020-04-25] MEDS ORDERED: cefTRIAXone SODIUM 1 GM VIAL ONE (11:25)
[2020-04-25] MEDS ORDERED: DEXTROSE 5%-WATER - 50 ML IVPB ONE (11:25)
[2020-04-25] MEDS: ENOXAPARIN NA (PORCINE) 40 MG/0.4 ML DISP.SYRIN SQ SCH (12:27)
[2020-04-25] MEDS: CEFTRIAXONE 1 GM in DEXTROSE 5%-WATER - 50 ML IVPB SCH (15:52)
[2020-04-25] MEDS ORDERED: INSULIN (NOVOLOG) ASPART 100 UNITS/ML 10ML VIAL SQ ONE (19:21)
--- NOTE | 2020-04-25 19:25 | RAPID ---
Physical Examination Vital Signs: Vital Signs Temperature 98.4 F 04/25/20 18:00 Pulse Rate 80 04/25/20 18:00 Respiratory Rate 18 04/25/20 18:00 Blood Pressure 120/63 04/25/20 18:00 O2 Sat by Pulse Oximetry (%) 95 04/25/20 09:13 Labs: CBC, BMP 04/24/20 06:00 04/24/20 06:24 Rapid Response - Rapid Response Assessment: Rapid response paged overhead. telehealth nurse educator team responded immediately. Patient found on bathroom floor in a pool of urine by the toilet. Fall was unwitnessed Phys exam: VA 150/80, HR 80s, afebrile, RR16, SaO2 95% on RA Gen: Sitting on floor, incontinent. AAOx2 oriented to self and place but not to year CV: S1S2 wnl no mrg Pulm: CTABL Abd: Soft NTND. Extr: Small nonbleeding lac to right elbow. Generalized aching on palp of b/l LEs from thigh through feet. Neuro: Full ROM all extremities. Plan: -CT head w/o con as fall was unwitnessed and pt on lovenox -R elbow XR -B/l hip XR -CBC, CMP, Mag, repeat trop as it has been uptrending, following cardio recs to document peak -BGM: 260, 6 U novolog administered -covering hospitalist DREDGE WORKER aware
[2020-04-25 21:39] LABS: HEMATOCRIT 40.3 % (32.4-45.2); HEMOGLOBIN 13.3 GM/dL (10.7-15.3); MCH 29.1 pg (25.7-33.7); MCHC 32.9 g/dl (32.0-36.0); MEAN CELL VOLUME 88.5 fl (80-96); MEAN PLT VOLUME 9.3 fl (7.5-11.1); PLATELET COUNT 279 K/MM3 (134-434); RBC 4.56 M/mm3 (3.60-5.2); RDW 15.1 % (11.6-15.6); WHITE BLOOD COUNT 8.3 K/mm3 (4.0-10.0)
[2020-04-25 22:08] LABS: ALBUMIN 3.5 g/dl (3.4-5.0); BILIRUBIN,TOTAL 0.5 mg/dL (0.2-1); BLOOD UREA NITROGEN 20.6 mg/dL (7-18); CALCIUM 9.6 mg/dL (8.5-10.1); CREATININE 1.2 mg/dL (0.55-1.3); MAGNESIUM 2.3 mg/dL (1.8-2.4); POTASSIUM 5.1 mmol/L (3.5-5.1); TOT PROT 7.4 g/dl (6.4-8.2)
[2020-04-25] MEDS: ATORVASTATIN CA 80 MG TABLET (FP) PO SCH (22:26)
[2020-04-26] MEDS: INSULIN SLIDING SCALE (NOVOLOG) 1 VIAL SQ SCH ×3 (06:34→16:44)
[2020-04-26] MEDS: INSULIN (LEVEMIR) 100 UNITS/ML UNITS SQ SCH ×2 (06:34→21:15)
--- NOTE | 2020-04-26 09:39 | PN ---
Progress Note, Physician History of Present Illness: Pt seen/ examined Events noted s/p fall last night. awake/ comfortable x rays / ct scan reviewed Denies pain - Current Medication List Current Medications: Active Medications Acetaminophen (Tylenol -) 650 mg PO Q4H PRN PRN Reason: PAIN LEVEL 4 - 6 Aspirin (Asa -) 81 mg PO DAILY [facility] Last Admin: 04/25/20 09:14 Dose: 81 mg Documented by: Atorvastatin Calcium (Lipitor -) 80 mg PO HS [facility] Last Admin: 04/25/20 22:26 Dose: 80 mg Documented by: Carvedilol (Coreg -) 6.25 mg PO BID [facility] Last Admin: 04/25/20 22:26 Dose: 6.25 mg Documented by: Enoxaparin Sodium (Lovenox -) 40 mg SQ DAILY [facility] Last Admin: 04/25/20 12:27 Dose: 40 mg Documented by: Ceftriaxone Sodium 1 gm/ (Dextrose) 50 mls @ 200 mls/hr IVPB DAILY [facility]; Protocol Last Admin: 04/25/20 15:52 Dose: 200 mls/hr Documented by: Insulin Aspart (Novolog Vial Sliding Scale -) 1 vial SQ TIDAC [facility]; Protocol Last Admin: 04/26/20 06:34 Dose: 2 units Documented by: Insulin Detemir (Levemir Vial) 10 units SQ BID@0700,2200 [facility] Last Admin: 04/26/20 06:34 Dose: 10 unit Documented by: Lisinopril (Prinivil) 10 mg PO DAILY [facility] Last Admin: 04/25/20 09:18 Dose: 10 mg Documented by: Pantoprazole Sodium (Protonix -) 40 mg PO DAILY [facility] Last Admin: 04/25/20 09:14 Dose: 40 mg Documented by: Ranolazine (Ranexa -) 500 mg PO BID [facility] Last Admin: 04/25/20 22:26 Dose: 500 mg Documented by: - Objective Vital Signs: Vital Signs Temperature 98.4 F 04/26/20 06:00 Pulse Rate 68 04/26/20 06:00 Respiratory Rate 18 04/26/20 06:00 Blood Pressure 153/75 04/26/20 06:00 O2 Sat by Pulse Oximetry (%) 99 04/26/20 06:00 Constitutional: Yes: No Distress, Calm Neck: Yes: Supple Cardiovascular: Yes: Regular Rate and Rhythm Respiratory: Yes: CTA Bilaterally Gastrointestinal: Yes: Soft Edema: No Neurological: Yes: Other (awake/ non focal) Labs: CBC, BMP 04/25/20 21:05 04/25/20 21:05 INR, PTT INR 0.92 (0.83-1.09) 04/23/20 14:04 Problem List - Problems (1) UTI (urinary tract infection) Code(s): N39.0 - URINARY TRACT INFECTION, SITE NOT SPECIFIED (2) Chest pain Code(s): R07.9 - CHEST PAIN, UNSPECIFIED Qualifiers: Chest pain type: other chest pain Qualified Code(s): R07.89 - Other chest pain; R07.8 - Other chest pain (3) Coronary artery disease Code(s): I25.10 - ATHSCL HEART DISEASE OF [place] CORONARY ARTERY W/O ANG PCTRS Qualifiers: Coronary Disease-Associated Artery/Lesion type: [place] artery [place] vs. transplanted heart: [place] heart Associated angina: without angina Qualified Code(s): I25.10 - Atherosclerotic heart disease of [place] coronary artery without angina pectoris (4) Dementia Code(s): F03.90 - UNSPECIFIED DEMENTIA WITHOUT BEHAVIORAL DISTURBANCE Qualifiers: Dementia type: Alzheimer's disease Alzheimer's disease onset: unspecified onset Dementia behavioral disturbance: without behavioral disturbance Q ualified Code(s): G30.9 - Alzheimer's disease, unspecified; F02.80 - Dementia in other diseases classified elsewhere without behavioral disturbance (5) Hyperlipidemia associated with type 2 diabetes mellitus Code(s): E11.69 - TYPE 2 DIABETES MELLITUS WITH OTHER SPECIFIED COMPLICATION; E78.5 - HYPERLIPIDEMIA, UNSPECIFIED (6) Ischemic cardiomyopathy Code(s): I25.5 - ISCHEMIC CARDIOMYOPATHY (7) Type 2 diabetes mellitus Code(s): E11.9 - TYPE 2 DIABETES MELLITUS WITHOUT COMPLICATIONS Qualifiers: Diabetes mellitus skilled nursing insulin use: with local intermodal truck driver use Diabetes mellitus complication status: with circulatory complication Diabetes mellitus complication detail: with other circulatory complications Qualified Code(s): E11.59 - Type 2 diabetes mellitus with other circulatory complications; Z79.4 - half-way (current) use of insulin Assessment/Plan discussed with nursing staff. fall precautions Abx f/u cultures PT will continue to follow Overall condition stable but remains guarded due to multiple comorbidities. I had d/w pts daughter yesterday in detail / as well as with pts private pmd Dr. Moreland.
[2020-04-26] MEDS ORDERED: cefTRIAXone SODIUM 1 GM VIAL ONE (10:03)
[2020-04-26] MEDS ORDERED: DEXTROSE 5%-WATER - 50 ML IVPB ONE (10:03)
[2020-04-26] MEDS: PANTOPRAZOLE 40 MG TABLET PO SCH (10:14)
[2020-04-26] MEDS: ASPIRIN 81 MG CHEWABLE TABLETS PO SCH (10:15)
[2020-04-26] MEDS: RANOLAZINE E.R. 500 MG TABLET (FP) PO SCH ×2 (10:15→21:15)
[2020-04-26] MEDS: CARVEDILOL 6.25 MG TABLET (FP) PO SCH ×2 (10:15→21:14)
[2020-04-26] MEDS: LISINOPRIL 10 MG TABLET PO SCH (10:15)
[2020-04-26] MEDS: CEFTRIAXONE 1 GM in DEXTROSE 5%-WATER - 50 ML IVPB SCH (10:15)
[2020-04-26] MEDS: ENOXAPARIN NA (PORCINE) 40 MG/0.4 ML DISP.SYRIN SQ SCH (10:16)
--- NOTE | 2020-04-26 10:29 | PN ---
Progress Note, Physician Chief Complaint: Events noted Post fall last night Confusion History of Present Illness: Patient was seen and examined. Awake. Chart was reviewed Confused - Current Medication List Current Medications: Active Medications Acetaminophen (Tylenol -) 650 mg PO Q4H PRN PRN Reason: PAIN LEVEL 4 - 6 Aspirin (Asa -) 81 mg PO DAILY [facility] Last Admin: 04/26/20 10:15 Dose: 81 mg Documented by: Atorvastatin Calcium (Lipitor -) 80 mg PO HS [facility] Last Admin: 04/25/20 22:26 Dose: 80 mg Documented by: Carvedilol (Coreg -) 6.25 mg PO BID [facility] Last Admin: 04/26/20 10:15 Dose: 6.25 mg Documented by: Enoxaparin Sodium (Lovenox -) 40 mg SQ DAILY [facility] Last Admin: 04/26/20 10:16 Dose: 40 mg Documented by: Ceftriaxone Sodium 1 gm/ (Dextrose) 50 mls @ 200 mls/hr IVPB DAILY [facility]; Protocol Last Admin: 04/26/20 10:15 Dose: 200 mls/hr Documented by: Insulin Aspart (Novolog Vial Sliding Scale -) 1 vial SQ TIDAC [facility]; Protocol Last Admin: 04/26/20 06:34 Dose: 2 units Documented by: Insulin Detemir (Levemir Vial) 10 units SQ BID@0700,2200 [facility] Last Admin: 04/26/20 06:34 Dose: 10 unit Documented by: Lisinopril (Prinivil) 10 mg PO DAILY [facility] Last Admin: 04/26/20 10:15 Dose: 10 mg Documented by: Pantoprazole Sodium (Protonix -) 40 mg PO DAILY [facility] Last Admin: 04/26/20 10:14 Dose: 40 mg Documented by: Ranolazine (Ranexa -) 500 mg PO BID [facility] Last Admin: 04/26/20 10:15 Dose: 500 mg Documented by: - Objective Vital Signs: Vital Signs Temperature 98.4 F 04/26/20 06:00 Pulse Rate 68 04/26/20 06:00 Respiratory Rate 18 04/26/20 06:00 Blood Pressure 153/75 04/26/20 06:00 O2 Sat by Pulse Oximetry (%) 99 04/26/20 06:00 Neck: Yes: Supple Cardiovascular: Yes: Regular Rate and Rhythm, S1, S2 Respiratory: Yes: Diminished Gastrointestinal: Yes: Normal Bowel Sounds, Soft. No: Tenderness Edema: No Labs: CBC, BMP 04/25/20 21:05 04/25/20 21:05 Problem List - Problems (1) Cerebrovascular disease Code(s): I67.9 - CEREBROVASCULAR DISEASE, UNSPECIFIED (2) Coronary artery disease Code(s): I25.10 - ATHSCL HEART DISEASE OF [place] CORONARY ARTERY W/O ANG PCTRS Qualifiers: Coronary Disease-Associated Artery/Lesion type: [place] artery [place] vs. transplanted heart: [place] heart Associated angina: without angina Qualified Code(s): I25.10 - Atherosclerotic heart disease of [place] coronary artery with out angina pectoris (3) Dementia Code(s): F03.90 - UNSPECIFIED DEMENTIA WITHOUT BEHAVIORAL DISTURBANCE Qualifiers: Dementia type: Alzheimer's disease Alzheimer's disease onset: unspecified onset Dementia behavioral disturbance: without behavioral disturbance Qualified Code(s): G30.9 - Alzheimer's disease, unspecified; F02.80 - Dementia in other diseases classified elsewhere without behavioral disturbance (4) Ischemic cardiomyopathy Code(s): I25.5 - ISCHEMIC CARDIOMYOPATHY (5) Old anterior myocardial infarction Code(s): I25.2 - OLD MYOCARDIAL INFARCTION (6) Type 2 diabetes mellitus Code(s): E11.9 - TYPE 2 DIABETES MELLITUS WITHOUT COMPLICATIONS Qualifiers: Diabetes mellitus laborer marine terminal insulin use: with alf use Diabetes mellitus complication status: with circulatory complication Diabetes mellitus complication detail: with other circulatory complications Qualified Code(s): E11.59 - Type 2 diabetes mellitus with other circulatory complications; Z79.4 - termite exterminator (current) use of insulin (7) UTI (urinary tract infection) Code(s): N39.0 - URINARY TRACT INFECTION, SITE NOT SPECIFIED Assessment/Plan 1. Chest pain with demand ischemia 2. CAD s/p anterior [place] 3. LV systolic dysfunction 4. Hypertensive heart disease 5. OBS/Dementia 6. Old lacunar strokes 7. Type 2 DM not at goal control 8. UTI PLAN: 1. Trend troponin (peaked at 0.36 on 04/24/20 and was 0.27 yesterday) 2. Continue Carvedilol 6.25 mg BID, Lisinopril 10 mg QD, ASA 81 mg QD and reduce Lipitor to 40 mg QD with uptitration as tolerated. Continue Ranexa 500 mg BID 3. Consider Farxiga 10 mg QD given DM and cardiomyopathy. 3. Conservative therapy and fall precaution 4. Antibiotic course for UTI 5. Follow up in office [facility] if feasible as outpatient Adrian Medrano MD
[2020-04-26] MEDS: ATORVASTATIN CA 80 MG TABLET (FP) PO SCH (21:15)
[2020-04-27] MEDS: INSULIN (LEVEMIR) 100 UNITS/ML UNITS SQ SCH ×2 (06:55→21:24)
[2020-04-27] MEDS: INSULIN SLIDING SCALE (NOVOLOG) 1 VIAL SQ SCH ×3 (06:56→16:51)
--- NOTE | 2020-04-27 08:59 | PN ---
Progress Note, Physician Chief Complaint: Events noted Awake and more alert History of Present Illness: Patient was seen and examined. Awake. Chart was reviewed Denies chest pain or SOB - Current Medication List Current Medications: Active Medications Acetaminophen (Tylenol -) 650 mg PO Q4H PRN PRN Reason: PAIN LEVEL 4 - 6 Aspirin (Asa -) 81 mg PO DAILY [facility] Last Admin: 04/26/20 10:15 Dose: 81 mg Documented by: Atorvastatin Calcium (Lipitor -) 80 mg PO HS [facility] Last Admin: 04/26/20 21:15 Dose: 80 mg Documented by: Carvedilol (Coreg -) 6.25 mg PO BID [facility] Last Admin: 04/26/20 21:14 Dose: 6.25 mg Documented by: Enoxaparin Sodium (Lovenox -) 40 mg SQ DAILY [facility] Last Admin: 04/26/20 10:16 Dose: 40 mg Documented by: Ceftriaxone Sodium 1 gm/ (Dextrose) 50 mls @ 200 mls/hr IVPB DAILY [facility]; Protocol Last Admin: 04/26/20 10:15 Dose: 200 mls/hr Documented by: Insulin Aspart (Novolog Vial Sliding Scale -) 1 vial SQ TIDAC [facility]; Protocol Last Admin: 04/27/20 06:56 Dose: 2 units Documented by: Insulin Detemir (Levemir Vial) 10 units SQ BID@0700,2200 [facility] Last Admin: 04/27/20 06:55 Dose: 10 unit Documented by: Lisinopril (Prinivil) 10 mg PO DAILY [facility] Last Admin: 04/26/20 10:15 Dose: 10 mg Documented by: Pantoprazole Sodium (Protonix -) 40 mg PO DAILY [facility] Last Admin: 04/26/20 10:14 Dose: 40 mg Documented by: Ranolazine (Ranexa -) 500 mg PO BID [facility] Last Admin: 04/26/20 21:15 Dose: 500 mg Documented by: - Objective Vital Signs: Vital Signs Temperature 98.1 F 04/27/20 06:00 Pulse Rate 66 04/27/20 06:00 Respiratory Rate 20 04/27/20 06:00 Blood Pressure 138/72 04/27/20 06:00 O2 Sat by Pulse Oximetry (%) 100 04/27/20 06:00 Neck: Yes: Supple Cardiovascular: Yes: Regular Rate and Rhythm, S1, S2 Respiratory: Yes: CTA Bilaterally Gastrointestinal: Yes: Normal Bowel Sounds, Soft. No: Tenderness Edema: No Labs: CBC, BMP 04/25/20 21:05 04/25/20 21:05 Problem List - Problems (1) Cerebrovascular disease Code(s): I67.9 - CEREBROVASCULAR DISEASE, UNSPECIFIED (2) Coronary artery disease Code(s): I25.10 - ATHSCL HEART DISEASE OF [place] CORONARY ARTERY W/O ANG PCTRS Qualifiers: Coronary Disease-Associated Artery/Lesion type: [place] artery [place] vs. transplanted heart: [place] heart Associated angina: without angina Qualified Code(s): I25.10 - Atherosclerotic heart disease of [place] coronary artery without angina pectoris (3) Dementia Code(s): F03.90 - UNSPECIFIED DEMENTIA WITHOUT BEHAVIORAL DISTURBANCE Qualifiers: Dementia type: Alzheimer's disease Alzheimer's disease onset: unspecified onset Dementia behavioral disturbance: without behavioral disturbance Qualified Code(s): G30.9 - Alzheimer's disease, unspecified; F02.80 - Dementia in other diseases classified elsewhere without behavioral disturbance (4) Ischemic cardiomyopathy Code(s): I25.5 - ISCHEMIC CARDIOMYOPATHY (5) Old anterior myocardial infarction Code(s): I25.2 - OLD MYOCARDIAL INFARCTION (6) Type 2 diabetes mellitus Code(s): E11.9 - TYPE 2 DIABETES MELLITUS WITHOUT COMPLICATIONS Qualifiers: Diabetes mellitus mcc insulin use: with mcc use Diabetes mellitus complication status: with circulatory complication Diabetes mellitus complication detail: with other circulatory complications Qualified Code(s): E11.59 - Type 2 diabetes mellitus with other circulatory complications; Z79.4 - long term care phlebotomist (current) use of insulin (7) UTI (urinary tract infection) Code(s): N39.0 - URINARY TRACT INFECTION, SITE NOT SPECIFIED Assessment/Plan 1. Chest pain with demand ischemia 2. CAD s/p anterior [place] 3. LV systolic dysfunction 4. Hypertensive heart disease 5. OBS/Dementia 6. Old lacunar strokes 7. Type 2 DM not at goal control 8. UTI PLAN: 1. Trend troponin (peaked at 0.36 on 04/24/20) 2. Continue Carvedilol 6.25 mg BID, Lisinopril 10 mg QD, ASA 81 mg QD and reduce Lipitor to 40 mg QD with uptitration as tolerated. Continue Ranexa 500 mg BID 3. Consider Farxiga 10 mg QD given DM and cardiomyopathy. 3. Conservative therapy and fall precaution 4. Antibiotic course for UTI 5. [facility] Adrian Medrano MD
[2020-04-27] MEDS ORDERED: ATORVASTATIN CA 40 MG TABLET (FP) PO SCH (09:00)
[2020-04-27] MEDS ORDERED: DEXTROSE 5%-WATER - 50 ML IVPB ONE (09:20)
[2020-04-27] MEDS ORDERED: cefTRIAXone SODIUM 1 GM VIAL ONE (09:20)
[2020-04-27] MEDS: ASPIRIN 81 MG CHEWABLE TABLETS PO SCH (09:21)
[2020-04-27] MEDS: PANTOPRAZOLE 40 MG TABLET PO SCH (09:21)
[2020-04-27] MEDS: CARVEDILOL 6.25 MG TABLET (FP) PO SCH ×2 (09:21→21:26)
[2020-04-27] MEDS: ENOXAPARIN NA (PORCINE) 40 MG/0.4 ML DISP.SYRIN SQ SCH (09:21)
[2020-04-27] MEDS: CEFTRIAXONE 1 GM in DEXTROSE 5%-WATER - 50 ML IVPB SCH (09:21)
[2020-04-27] MEDS: LISINOPRIL 10 MG TABLET PO SCH (09:21)
[2020-04-27] MEDS: RANOLAZINE E.R. 500 MG TABLET (FP) PO SCH ×2 (09:21→21:26)
--- NOTE | 2020-04-27 10:17 | PN ---
Progress Note, Physician History of Present Illness: Pt seen/ examined awake and comfortable no complaints offered today Denies pain denies shortness of breath - Current Medication List Current Medications: Active Medications Acetaminophen (Tylenol -) 650 mg PO Q4H PRN PRN Reason: PAIN LEVEL 4 - 6 Aspirin (Asa -) 81 mg PO DAILY [facility] Last Admin: 04/27/20 09:21 Dose: 81 mg Documented by: Atorvastatin Calcium (Lipitor -) 40 mg PO [facility] Carvedilol (Coreg -) 6.25 mg PO BID [facility] Last Admin: 04/27/20 09:21 Dose: 6.25 mg Documented by: Enoxaparin Sodium (Lovenox -) 40 mg SQ DAILY [facility] Last Admin: 04/27/20 09:21 Dose: 40 mg Documented by: Ceftriaxone Sodium 1 gm/ (Dextrose) 50 mls @ 200 mls/hr IVPB DAILY [facility]; Protocol Last Admin: 04/27/20 09:21 Dose: 200 mls/hr Documented by: Insulin Aspart (Novolog Vial Sliding Scale -) 1 vial SQ TIDAC [facility]; Protocol Last Admin: 04/27/20 06:56 Dose: 2 units Documented by: Insulin Detemir (Levemir Vial) 10 units SQ BID@0700,2200 [facility] Last Admin: 04/27/20 06:55 Dose: 10 unit Documented by: Lisinopril (Prinivil) 10 mg PO DAILY [facility] Last Admin: 04/27/20 09:21 Dose: 10 mg Documented by: Pantoprazole Sodium (Protonix -) 40 mg PO DAILY [facility] Last Admin: 04/27/20 09:21 Dose: 40 mg Documented by: Ranolazine (Ranexa -) 500 mg PO BID [facility] Last Admin: 04/27/20 09:21 Dose: 500 mg Documented by: - Objective Vital Signs: Vital Signs Temperature 98.0 F 04/27/20 09:35 Pulse Rate 74 04/27/20 09:35 Respiratory Rate 16 04/27/20 09:35 Blood Pressure 130/59 L 04/27/20 09:35 O2 Sat by Pulse Oximetry (%) 95 04/27/20 09:35 Constitutional: Yes: No Distress, Calm Eyes: Yes: Conjunctiva Clear Neck: Yes: Supple Respiratory: Yes: CTA Bilaterally Gastrointestinal: Yes: Soft Edema: No Labs: CBC, BMP 04/25/20 21:05 10/02/20 21:05 INR, PTT INR 0.92 (0.83-1.09) 04/23/20 14:04 Problem List - Problems (1) UTI (urinary tract infection) Code(s): N39.0 - URINARY TRACT INFECTION, SITE NOT SPECIFIED (2) Chest pain Code(s): R07.9 - CHEST PAIN, UNSPECIFIED Qualifiers: Chest pain type: other chest pain Qualified Code(s): R07.89 - Other chest pain; R07.8 - Other chest pain (3) Coronary artery disease Code(s): I25.10 - ATHSCL HEART DISEASE OF [place] CORONARY ARTERY W/O ANG PCTRS Qualifiers: Coronary Disease-Associated Artery/Lesion type: [place] artery [place] vs. transplanted heart: [place] heart Associated angina: without angina Qualified Code(s): I25.10 - Atherosclerotic heart disease of [place] coronary artery without angina pectoris (4) Dementia Code(s): F03.90 - UNSPECIFIED DEMENTIA WITHOUT BEHAVIORAL DISTURBANCE Qualifiers: Dementia type: Alzheimer's disease Alzheimer's disease onset: unspecified onset Dementia behavioral disturbance: without behavioral disturbance Qualified Code(s): G30.9 - Alzheimer's disease, unspecified; F02.80 - Dementia in other diseases classified elsewhere without behavioral disturbance (5) Hyperlipidemia associated with type 2 diabetes mellitus Code(s): E11.69 - TYPE 2 DIABETES MELLITUS WITH OTHER SPECIFIED COMPLICATION; E78.5 - HYPERLIPIDEMIA, UNSPECIFIED (6) Ischemic cardiomyopathy Code(s): I25.5 - ISCHEMIC CARDIOMYOPATHY (7) Type 2 diabetes mellitus Code(s): E11.9 - TYPE 2 DIABETES MELLITUS WITHOUT COMPLICATIONS Qualifiers: Diabetes mellitus terminal operator insulin use: with fdc use Diabetes mellitus complication status: with circulatory complication Diabetes mellitus complication detail: with other circulatory complications Qualified Code(s): E11.59 - Type 2 diabetes mellitus with other circulatory complications; Z79.4 - long-term (current) use of insulin Assessment/Plan clinically stable Continue present care physical therapy Urine culture negative--- We will discontinue antibiotics after today's dose Discharge planning--- home versus short-term rehabilitation----likely tomorrow-- Discussed with nursing staff also will follow
--- NOTE | 2020-04-27 21:33 | EKG ---
Test Reason : Blood Pressure : / mmHG Vent. Rate : 070 BPM Atrial Rate : 070 BPM P-R Int : 182 ms QRS Dur : 134 ms QT Int : 434 ms P-R-T Axes : 042 -35 086 degrees QTc Int : 468 ms NORMAL SINUS RHYTHM LEFT AXIS DEVIATION LEFT BUNDLE BRANCH BLOCK ABNORMAL ECG WHEN COMPARED WITH ECG OF 23-APR-2020 19:46, NO SIGNIFICANT CHANGE WAS FOUND Confirmed by SABRINA RAMIREZ MD ([id number]) on 04/27/2020 9:33:05 PM Referred By: Confirmed By:SABRINA RAMIREZ MD
[2020-04-28] MEDS: INSULIN SLIDING SCALE (NOVOLOG) 1 VIAL SQ SCH ×2 (06:06→11:35)
[2020-04-28] MEDS: INSULIN (LEVEMIR) 100 UNITS/ML UNITS SQ SCH (06:06)
--- NOTE | 2020-04-28 08:59 | PN ---
Progress Note, Physician Chief Complaint: Events noted Not in distress History of Present Illness: Patient was seen and examined. Awake. Chart was reviewed Denies chest pain or SOB - Current Medication List Current Medications: Active Medications Acetaminophen (Tylenol -) 650 mg PO Q4H PRN PRN Reason: PAIN LEVEL 4 - 6 Aspirin (Asa -) 81 mg PO DAILY [facility] Last Admin: 04/27/20 09:21 Dose: 81 mg Documented by: Atorvastatin Calcium (Lipitor -) 40 mg PO HS [facility] Last Admin: 04/27/20 21:26 Dose: 40 mg Documented by: Carvedilol (Coreg -) 6.25 mg PO BID [facility] Last Admin: 04/27/20 21:26 Dose: 6.25 mg Documented by: Enoxaparin Sodium (Lovenox -) 40 mg SQ DAILY [facility] Last Admin: 04/27/20 09:21 Dose: 40 mg Documented by: Ceftriaxone Sodium 1 gm/ (Dextrose) 50 mls @ 200 mls/hr IVPB DAILY [facility]; Protocol Last Admin: 04/27/20 09:21 Dose: 200 mls/hr Documented by: Insulin Aspart (Novolog Vial Sliding Scale -) 1 vial SQ TIDAC [facility]; Protocol Last Admin: 04/28/20 06:06 Dose: 4 units Documented by: Insulin Detemir (Levemir Vial) 10 units SQ BID@0700,2200 [facility] Last Admin: 04/28/20 06:06 Dose: 10 unit Documented by: Lisinopril (Prinivil) 10 mg PO DAILY [facility] Last Admin: 04/27/20 09:21 Dose: 10 mg Documented by: Pantoprazole Sodium (Protonix -) 40 mg PO DAILY [facility] Last Admin: 04/27/20 09:21 Dose: 40 mg Documented by: Ranolazine (Ranexa -) 500 mg PO BID [facility] Last Admin: 04/27/20 21:26 Dose: 500 mg Documented by: - Objective Vital Signs: Vital Signs Temperature 97.8 F 04/28/20 05:00 Pulse Rate 56 L 04/28/20 05:00 Respiratory Rate 18 04/28/20 06:00 Blood Pressure 125/69 04/28/20 05:00 O2 Sat by Pulse Oximetry (%) 95 04/28/20 06:00 Neck: Yes: Supple Cardiovascular: Yes: Bradycardia, S1, S2 Respiratory: Yes: CTA Bilaterally Gastrointestinal: Yes: Normal Bowel Sounds, Soft. No: Tenderness Edema: No Additional Findings/Remarks: - Review of Systems Constitutional: denies: Chills, Fever Cardiovascular: reports: Shortness of Breath. (+) Chest Pain, de nies:Palpitations Respiratory: denies: Cough, (+) SOB. denies: Hemoptysis, Orthopnea, PND, Wheezing Gastrointestinal: denies: Abdominal Pain, Constipation, Diarrhea, Melena, Nausea, Rectal Bleeding, Vomiting Musculoskeletal: denies: Back Pain, Joint Pain Neurological: denies: Dizziness, Headache, Seizure, Syncope Problem List - Problems (1) Cerebrovascular disease Code(s): I67.9 - CEREBROVASCULAR DISEASE, UNSPECIFIED (2) Coronary artery disease Code(s): I25.10 - ATHSCL HEART DISEASE OF [place] CORONARY ARTERY W/O ANG PCTRS Qualifiers: Coronary Disease-Associated Artery/Lesion type: [place] artery [place] vs. transplanted heart: [place] heart Associated angina: without angina Qualified Code(s): I25.10 - Atherosclerotic heart disease of [place] coronary artery without angina pectoris (3) Dementia Code(s): F03.90 - UNSPECIFIED DEMENTIA WITHOUT BEHAVIORAL DISTURBANCE Qualifiers: Dementia type: Alzheimer's disease Alzheimer's disease onset: unspecified onset Dementia behavioral disturbance: without behavioral disturbance Qualified Code(s): G30.9 - Alzheimer's disease, unspecified; F02.80 - Dementia in other diseases classified elsewhere without behavioral disturbance (4) Ischemic cardiomyopathy Code(s): I25.5 - ISCHEMIC CARDIOMYOPATHY (5) Old anterior myocardial infarction Code(s): I25.2 - OLD MYOCARDIAL INFARCTION (6) Type 2 diabetes mellitus Code(s): E11.9 - TYPE 2 DIABETES MELLITUS WITHOUT COMPLICATIONS Qualifiers: Diabetes mellitus care home insulin use: with exterminator use Diabetes mellitus complication status: with circulatory complication Diabetes mellitus complication detail: with other circulatory complications Qualified Code(s): E11.59 - Type 2 diabetes mellitus with other circulatory complications; Z79.4 - group home (current) use of insulin (7) UTI (urinary tract infection) Code(s): N39.0 - URINARY TRACT INFECTION, SITE NOT SPECIFIED Assessment/Plan 1. Chest pain with demand ischemia 2. CAD s/p anterior [place] 3. LV systolic dysfunction 4. Hypertensive heart disease 5. OBS/Dementia 6. Old lacunar strokes 7. Type 2 DM not at goal control 8. UTI PLAN: 1. Trend troponin (peaked at 0.36 on 04/24/20) 2. Continue Carvedilol 6.25 mg BID, Lisinopril 10 mg QD, ASA 81 mg QD and reduce Lipitor to 40 mg QD with uptitration as tolerated. Continue Ranexa 500 mg BID 3. Consider Farxiga 10 mg QD given DM and cardiomyopathy. 3. Conservative therapy and fall precaution 4. Antibiotic course for UTI 5. [facility] Adrian Medrano MD
[2020-04-28] MEDS ORDERED: DEXTROSE 5%-WATER - 50 ML IVPB ONE (10:32)
[2020-04-28] MEDS ORDERED: cefTRIAXone SODIUM 1 GM VIAL ONE (10:32)
[2020-04-28] MEDS: ENOXAPARIN NA (PORCINE) 40 MG/0.4 ML DISP.SYRIN SQ SCH (10:35)
[2020-04-28] MEDS: CEFTRIAXONE 1 GM in DEXTROSE 5%-WATER - 50 ML IVPB SCH (10:35)
[2020-04-28] MEDS: CARVEDILOL 6.25 MG TABLET (FP) PO SCH (10:36)
[2020-04-28] MEDS: ASPIRIN 81 MG CHEWABLE TABLETS PO SCH (10:36)
[2020-04-28] MEDS: RANOLAZINE E.R. 500 MG TABLET (FP) PO SCH (10:36)
[2020-04-28] MEDS: LISINOPRIL 10 MG TABLET PO SCH (10:36)
[2020-04-28] MEDS: PANTOPRAZOLE 40 MG TABLET PO SCH (10:36)
--- NOTE | 2020-04-28 12:06 | DS ---
Physical Examination Vital Signs: Vital Signs Temperature 98 F 04/28/20 09:00 Pulse Rate 70 04/28/20 09:00 Respiratory Rate 18 04/28/20 09:00 Blood Pressure 150/80 04/28/20 09:00 O2 Sat by Pulse Oximetry (%) 95 04/28/20 09:00 Findings/Remarks: pt feels well no complains Constitutional: Yes: No Distress, Calm Neck: Yes: Supple Cardiovascular: Yes: Regular Rate and Rhythm Respiratory: Yes: CTA Bilaterally Gastrointestinal: Yes: Soft Edema: No Neurological: Yes: Alert Psychiatric: Yes: Alert Labs: CBC, BMP 04/25/20 21:05 04/25/20 21:05 Discharge Summary Problems reviewed: Yes Reason For Visit: CHEST PAIN Current Active Problems Cerebrovascular disease (Acute) Chest pain (Acute) Coronary artery disease (Acute) Dementia (Acute) Hyperlipidemia associated with type 2 diabetes mellitus (Acute) Ischemic cardiomyopathy (Acute) Old anterior myocardial infarction (Acute) Type 2 diabetes mellitus (Acute) UTI (urinary tract infection) (Acute) Hospital Course: The patient is a 79 year old female with a significant PMH of HTN heart disease, IDDM, HLD, dementia, cva ,chest pain R/O SD admission at [facility] 10/05/2019 and found to have ischemic cardiomyopathy with LAD infarct who presented to the emergency department for chest pain similar to September admission. Pt admitted to tele Cardiology followed Diagnosed with Demand ischemia. pt also found to have uti-- u/a packed with bacteria U/c was -ve but done after starting abx treated with abx overall well now Stable for d/c PT-Eval today May need str will d/w daughter medically stable for d/c Meds reconcilled d/w RN also. Condition: Stable - Instructions Referrals: Andrei Moreland MD [Primary Care Provider] - Disposition: HOME - Home Medications Comprehensive Discharge Medication List: Ambulatory Orders Alendronate Sodium [Binosto] 70 mg PO 04/24/20 Amlodipine Besylate 04/24/20 Aspirin [Lo-Dose Aspirin EC] 81 mg PO 04/24/20 Glipizide [Glipizide ER] 10 mg PO 04/24/20 Icosapent Ethyl [Vascepa] 1 gm PO 04/24/20 Linagliptin [Tradjenta] 5 mg PO 04/24/20 Lisinopril 5 mg PO 04/24/20 Memantine HCl 10 mg PO 04/24/20 Multivitamin [Tab-A-Aakash] 1 each PO 04/24/20 Omeprazole 40 mg PO 04/24/20 Acetaminophen [Tylenol .Regular Strength -] 650 mg PO Q4H PRN tablet 04/28/20 Atorvastatin Ca [Lipitor] 40 mg PO HS #30 tablet 04/28/20 Carvedilol [Coreg -] 6.25 mg PO BID #60 tablet 04/28/20 Ranolazine [Ranexa -] 500 mg PO BID #60 tab 04/28/20
[2020-04-28 14:32] VITALS: BP 133/69; PULSE 64; TEMP 98.2
== END 2020-04-28 14:47 | disposition home or self-care (01) ==
LOC: JER 13:28 → JERBED 16:30 → J4S 17:07 → J4W 04-28 05:31
PROVIDERS: ADMIT Internal Medicine; ATTEND Internal Medicine
PROC: 3E033NZ Introduction of Analgesics, Hypnotics, Sedatives into Peripheral Vein, Percutaneous Approach (ICD-10-PCS; principal; 2020-04-23)
PROC: 3E03329 Introduction of Other Anti-infective into Peripheral Vein, Percutaneous Approach (ICD-10-PCS; 2020-04-23)
PROC: 3E023GC Introduction of Other Therapeutic Substance into Muscle, Percutaneous Approach (ICD-10-PCS; 2020-04-23)
PROC: 3E013VG Introduction of Insulin into Subcutaneous Tissue, Percutaneous Approach (ICD-10-PCS; 2020-04-23)
PROC: 3E013VG Introduction of Insulin into Subcutaneous Tissue, Percutaneous Approach (ICD-10-PCS; 2020-04-23)
DX: I25.10 Atherosclerotic heart disease of native coronary artery without angina pectoris (principal); I25.5 Ischemic cardiomyopathy; E11.59 Type 2 diabetes mellitus with other circulatory complications; E78.5 Hyperlipidemia, unspecified; E11.69 Type 2 diabetes mellitus with other specified complication; I67.9 Cerebrovascular disease, unspecified; I25.2 Old myocardial infarction; R07.89 Other chest pain; R01.1 Cardiac murmur, unspecified; G30.9 Alzheimer's disease, unspecified; I10 Essential (primary) hypertension; Z86.73 Personal history of transient ischemic attack (TIA), and cerebral infarction without residual deficits; Z29.9 Encounter for prophylactic measures, unspecified
CPT/HCPCS: 36415; 70450-TC; 71046-TC-FY; 73070-TC-RT-FY; 73523-TC-FY; 80053; 80061; 81003; 82550; 82962; 83036; 83721; 83735; 83880; 84443; 84484; 85025; 85027; 85610; 85730; 87086; 93005; 93010; 99285-25; G0378; J0131; U0003

== ENCOUNTER 2020-10-21 10:21 | Observation (INO) | payer OTHER ==
[2020-10-21] MEDS ORDERED: DEXTROSE 50%-WATER 25 GM/50 ML DISP.SYRIN ONE (10:35)
[2020-10-21] MEDS ORDERED: DEXTROSE 50%-WATER - 25 GM/50 ML VIAL IVPUSH ONE (10:45)
[2020-10-21 11:51] LABS: BASO % 0.4 % (0-2.0); HEMATOCRIT 41.7 % (32.4-45.2); HEMOGLOBIN 13.5 GM/dL (10.7-15.3); LYMPH % 15.3 % (8-40); MCH 28.7 pg (25.7-33.7); MCHC 32.4 g/dl (32.0-36.0); MEAN CELL VOLUME 88.4 fl (80-96); MEAN PLT VOLUME 9.1 fl (7.5-11.1); MONO % 5.3 % (3.8-10.2); PLATELET COUNT 304 K/MM3 (134-434); RBC 4.72 M/mm3 (3.60-5.2); RDW 16.7 % (11.6-15.6); WHITE BLOOD COUNT 9.2 K/mm3 (4.0-10.0)
[2020-10-21 12:07] LABS: POTASSIUM 4.7 mmol/L (3.5-5.1)
[2020-10-21 12:09] LABS: ALBUMIN 3.5 g/dl (3.4-5.0); BLOOD UREA NITROGEN 26.6 mg/dL (7-18)
[2020-10-21 12:13] LABS: CREATININE 1.2 mg/dL (0.55-1.3)
[2020-10-21 12:14] LABS: BILIRUBIN,TOTAL 0.3 mg/dL (0.2-1); TOT PROT 7.2 g/dl (6.4-8.2)
[2020-10-21] MEDS ORDERED: INSULIN (NOVOLOG) ASPART 100 UNITS/ML 10ML VIAL SQ SCH ×2 (16:30→20:30)
[2020-10-21 18:51] LABS: PH,URINE 5.5 (5.0-8.0); URINE APPEARANCE CLOUDY; URINE BILIRUBIN NEGATIVE (NEGATIVE); URINE COLOR YELLOW; URINE GLUCOSE (UA) NEGATIVE (NEGATIVE); URINE KETONE NEGATIVE (NEGATIVE); URINE LEUK ESTERASE NEGATIVE (NEGATIVE); URINE NITRITE NEGATIVE (NEGATIVE); URINE PROTEIN NEGATIVE (NEGATIVE); URINE UROBILINOGEN 0.2 mg/dL (0.2-1.0)
[2020-10-21] MEDS ORDERED: CARVEDILOL 12.5 MG TABLET (FP) ONE (23:18)
[2020-10-21] MEDS ORDERED: ATORVASTATIN CA 40 MG TABLET (FP) ONE (23:19)
[2020-10-21] MEDS: CARVEDILOL 12.5 MG TABLET (FP) PO SCH (23:26)
[2020-10-21] MEDS: ATORVASTATIN CA 40 MG TABLET (FP) PO SCH (23:26)
[2020-10-21] MEDS: INSULIN SLIDING SCALE (NOVOLOG) 1 VIAL SQ SCH (23:27)
[2020-10-22] MEDS: CILOSTAZOL 100 MG TABLET PO SCH ×3 (00:44→22:18)
[2020-10-22 01:29] VITALS: BMI 27.1
[2020-10-22] MEDS: INSULIN SLIDING SCALE (NOVOLOG) 1 VIAL SQ SCH ×4 (06:13→22:18)
[2020-10-22] MEDS ORDERED: DEXTROSE 50%-WATER - 25 GM/50 ML VIAL IVPUSH ONE (06:15)
[2020-10-22] MEDS ORDERED: DEXTROSE 50%-WATER - 25 GM/50 ML VIAL ONE (06:22)
[2020-10-22 07:25] LABS: BASO % 0.4 % (0-2.0); EOS % 2.2 % (0-4.5); HEMATOCRIT 38.8 % (32.4-45.2); HEMOGLOBIN 12.8 GM/dL (10.7-15.3); LYMPH % 32.6 % (8-40); MCH 28.8 pg (25.7-33.7); MEAN CELL VOLUME 87.5 fl (80-96); MEAN PLT VOLUME 8.7 fl (7.5-11.1); MONO % 8.7 % (3.8-10.2); NEUT % 56.1 % (42.8-82.8); PLATELET COUNT 295 K/MM3 (134-434); RBC 4.43 M/mm3 (3.60-5.2); RDW 16.5 % (11.6-15.6); WHITE BLOOD COUNT 7.9 K/mm3 (4.0-10.0)
[2020-10-22 07:49] LABS: CHLORIDE 107 mmol/L (98-107); POTASSIUM 4.5 mmol/L (3.5-5.1); SODIUM 144 mmol/L (136-145)
[2020-10-22 08:34] LABS: CALCIUM 9.9 mg/dL (8.5-10.1)
[2020-10-22 08:35] LABS: ANION GAP 7 MMOL/L (8-16); BLOOD UREA NITROGEN 25.4 mg/dL (7-18); CO2 30 mmol/L (21-32)
[2020-10-22 08:38] LABS: CREATININE 1.2 mg/dL (0.55-1.3)
[2020-10-22 09:04] LABS: GLUCOSE,RANDOM 47 mg/dL (74-106)
[2020-10-22] MEDS: CLOPIDOGREL BISULFATE 75 MG TABLET (FP) PO SCH (11:38)
[2020-10-22] MEDS: CARVEDILOL 12.5 MG TABLET (FP) PO SCH ×2 (11:39→22:18)
[2020-10-22] MEDS: HYDROCHLOROTHIAZIDE 25 MG TABLET (FP) PO SCH (11:39)
[2020-10-22] MEDS: LISINOPRIL 10 MG TABLET PO SCH (11:39)
[2020-10-22] MEDS: MEMANTINE HCL 10 MG TABLET (FP) PO SCH (11:40)
[2020-10-22] MEDS: ASPIRIN COATED 81 MG TABLET.EC PO SCH (11:41)
[2020-10-22] MEDS ORDERED: DEXTROSE 10%-WATER - 1,000 ML IV SCH (11:45)
[2020-10-22] MEDS ORDERED: PT OWN MED DRAWER 7, Y5N ONE (22:00)
[2020-10-22] MEDS: ATORVASTATIN CA 40 MG TABLET (FP) PO SCH (22:18)
[2020-10-23] MEDS: INSULIN SLIDING SCALE (NOVOLOG) 1 VIAL SQ SCH ×4 (06:54→21:51)
[2020-10-23] MEDS ORDERED: PT OWN MED DRAWER 7, Y5N ONE ×2 (10:06→21:10)
[2020-10-23] MEDS: MEMANTINE HCL 10 MG TABLET (FP) PO SCH (10:09)
[2020-10-23] MEDS: CILOSTAZOL 100 MG TABLET PO SCH ×2 (10:09→21:51)
[2020-10-23] MEDS: ASPIRIN COATED 81 MG TABLET.EC PO SCH (10:10)
[2020-10-23] MEDS: CLOPIDOGREL BISULFATE 75 MG TABLET (FP) PO SCH (10:10)
[2020-10-23] MEDS: LISINOPRIL 10 MG TABLET PO SCH (10:10)
[2020-10-23] MEDS: CARVEDILOL 12.5 MG TABLET (FP) PO SCH ×2 (10:10→21:50)
[2020-10-23] MEDS: HYDROCHLOROTHIAZIDE 25 MG TABLET (FP) PO SCH (10:10)
[2020-10-23] MEDS ORDERED: INSULIN (LEVEMIR) 100 UNITS/ML UNITS SQ ONE (12:14)
[2020-10-23] MEDS: INSULIN (LEVEMIR) 100 UNITS/ML UNITS SQ SCH (12:17)
[2020-10-23] MEDS ORDERED: INSULIN (NOVOLOG) ASPART 100 UNITS/ML 10ML VIAL ONE ×2 (12:26→21:09)
[2020-10-23] MEDS: ATORVASTATIN CA 40 MG TABLET (FP) PO SCH (21:50)
[2020-10-24] MEDS: INSULIN SLIDING SCALE (NOVOLOG) 1 VIAL SQ SCH ×2 (06:44→12:10)
[2020-10-24] MEDS ORDERED: PT OWN MED DRAWER 7, Y5N ONE (09:41)
[2020-10-24] MEDS: CILOSTAZOL 100 MG TABLET PO SCH (09:42)
[2020-10-24] MEDS: INSULIN (LEVEMIR) 100 UNITS/ML UNITS SQ SCH (09:43)
[2020-10-24] MEDS: ASPIRIN COATED 81 MG TABLET.EC PO SCH (09:43)
[2020-10-24] MEDS: LISINOPRIL 10 MG TABLET PO SCH (09:43)
[2020-10-24] MEDS: CLOPIDOGREL BISULFATE 75 MG TABLET (FP) PO SCH (09:43)
[2020-10-24] MEDS: HYDROCHLOROTHIAZIDE 25 MG TABLET (FP) PO SCH (09:43)
[2020-10-24] MEDS: CARVEDILOL 12.5 MG TABLET (FP) PO SCH (09:43)
[2020-10-24] MEDS: MEMANTINE HCL 10 MG TABLET (FP) PO SCH (09:43)
[2020-10-24 18:31] VITALS: BP 119/64; PULSE 84; TEMP 98.1
== END 2020-10-24 17:10 | disposition home or self-care (01) ==
LOC: JER 10:21 → JERBED 12:54 → INTOOBSV 13:06 → JERBED 13:06 → UNDOADMOB 13:06 → J7W 23:52
PROVIDERS: ADMIT Internal Medicine; ATTEND Internal Medicine
PROC: 3E033GC Introduction of Other Therapeutic Substance into Peripheral Vein, Percutaneous Approach (ICD-10-PCS; principal; 2020-10-21)
PROC: 3E023GC Introduction of Other Therapeutic Substance into Muscle, Percutaneous Approach (ICD-10-PCS; 2020-10-21)
DX: E11.649 Type 2 diabetes mellitus with hypoglycemia without coma (principal); I25.10 Atherosclerotic heart disease of native coronary artery without angina pectoris; E78.5 Hyperlipidemia, unspecified; E11.59 Type 2 diabetes mellitus with other circulatory complications; Z79.4 Long term (current) use of insulin
CPT/HCPCS: 36415; 71045-TC-FY; 76705-TC; 80048; 80053; 81003; 82962; 83036; 84439; 84443; 85025; 87086; 93005; 93010; 96365; 96367; 96372; 96375; 99285-25; C9803; G0378; U0003; U0005

== ENCOUNTER 2023-05-04 20:57 | Observation (INO) | payer OTHER ==
[2023-05-04 21:05] VITALS: BMI 21.6
[2023-05-04 21:57] LABS: BASO % 0.4 % (0-2.0); EOS % 0.9 % (0-4.5); HEMATOCRIT 39.9 % (32.4-45.2); HEMOGLOBIN 13.4 GM/dL (10.7-15.3); LYMPH % 16.6 % (8-40); MCH 29.8 pg (25.7-33.7); MCHC 33.5 g/dl (32.0-36.0); MEAN CELL VOLUME 88.9 fl (80-96); MEAN PLT VOLUME 8.3 fl (7.5-11.1); MONO % 9.4 % (3.8-10.2); NEUT % 72.7 % (42.8-82.8); PLATELET COUNT 161 10^3/uL (134-434); RBC 4.49 M/mm3 (3.60-5.2); RDW 14.1 % (11.6-15.6); WHITE BLOOD COUNT 6.3 K/mm3 (4.0-10.0)
[2023-05-04 22:32] LABS: POTASSIUM 5.3 mmol/L (3.5-5.1)
[2023-05-04 22:34] LABS: CALCIUM 9.3 mg/dL (8.5-10.1)
[2023-05-04 22:35] LABS: ALBUMIN 3.4 g/dl (3.4-5.0); BLOOD UREA NITROGEN 30.8 mg/dL (7-18)
[2023-05-04 22:37] LABS: CREATININE 1.3 mg/dL (0.55-1.3)
[2023-05-04 22:40] LABS: TOT PROT 6.9 g/dl (6.4-8.2)
[2023-05-04] MEDS ORDERED: ACETAMINOPHEN 1000 MG/100 ML BAG IVPB ONE (22:50)
[2023-05-04 22:52] LABS: BILIRUBIN,TOTAL 0.7 mg/dL (0.2-1)
[2023-05-04] MEDS ORDERED: ACETAMINOPHEN INJECTION 100 ML IVPB ONE (22:55)
[2023-05-05] MEDS ORDERED: ACETAMINOPHEN INJECTION 100 ML IVPB ONE (04:41)
[2023-05-05] MEDS ORDERED: ACETAMINOPHEN 1000 MG/100 ML BAG IVPB ONE (04:55)
[2023-05-05] MEDS: ENOXAPARIN NA (PORCINE) 30 MG/0.3 ML DISP.SYRIN SQ SCH ×2 (05:20→13:59)
[2023-05-05] MEDS ORDERED: ENOXAPARIN NA (PORCINE) 30 MG/0.3 ML DISP.SYRIN SQ ONE (05:30)
[2023-05-05 07:11] LABS: EPI CELLS 4 /uL (0-25.1); HYALINE CASTS 2 /uL (0-3.1); PH,URINE 7.5 (5.0-8.0); URINE APPEARANCE CLOUDY; URINE BACTERIA >9,000 /uL (0-1359); URINE BILIRUBIN NEGATIVE (NEGATIVE); URINE COLOR YELLOW; URINE GLUCOSE (UA) NEGATIVE (NEGATIVE); URINE KETONE 1+ (NEGATIVE); URINE LEUK ESTERASE 3+ (NEGATIVE); URINE NITRITE POSITIVE (NEGATIVE); URINE PROTEIN 1+ (NEGATIVE); URINE UROBILINOGEN 0.2 mg/dL (0.2-1.0); URINE WBC 164 /uL (0-25.8)
[2023-05-05 07:12] LABS: HEMATOCRIT 37.8 % (32.4-45.2); HEMOGLOBIN 12.4 GM/dL (10.7-15.3); MCH 29.5 pg (25.7-33.7); MCHC 32.8 g/dl (32.0-36.0); MEAN CELL VOLUME 89.9 fl (80-96); MEAN PLT VOLUME 8.6 fl (7.5-11.1); PLATELET COUNT 160 10^3/uL (134-434); RBC 4.21 M/mm3 (3.60-5.2); RDW 14.3 % (11.6-15.6); WHITE BLOOD COUNT 3.8 K/mm3 (4.0-10.0)
[2023-05-05 07:34] LABS: POTASSIUM 4.1 mmol/L (3.5-5.1)
[2023-05-05] MEDS ORDERED: FERROUS SO4 325 MG TABLET (FP) ONE (07:48)
[2023-05-05] MEDS: FERROUS SO4 325 MG TABLET (FP) PO SCH ×3 (07:58→22:36)
[2023-05-05] MEDS: INSULIN SLIDING SCALE (NOVOLOG) 1 VIAL SQ SCH ×4 (07:58→22:52)
[2023-05-05 08:55] LABS: BLOOD UREA NITROGEN 33.1 mg/dL (7-18); CALCIUM 8.8 mg/dL (8.5-10.1); MAGNESIUM 2.3 mg/dL (1.8-2.4)
[2023-05-05 08:55] LABS: URINE RBC 90.3 /uL (0-23.9)
[2023-05-05 08:58] LABS: CREATININE 1.1 mg/dL (0.55-1.3)
[2023-05-05] MEDS ORDERED: ACETAMINOPHEN 1000 MG/100 ML BAG IVPB PRN (09:46)
[2023-05-05] MEDS: CILOSTAZOL 100 MG TABLET PO SCH (11:00)
[2023-05-05] MEDS: CARVEDILOL 12.5 MG TABLET (FP) PO SCH ×2 (11:15→22:37)
[2023-05-05] MEDS: ASPIRIN COATED 81 MG TABLET.EC PO SCH (11:15)
[2023-05-05] MEDS: DOCUSATE SODIUM 100 MG CAPSULE (FP) PO SCH (11:15)
[2023-05-05] MEDS: HYDROCHLOROTHIAZIDE 25 MG TABLET (FP) PO SCH (11:15)
[2023-05-05] MEDS: LISINOPRIL 10 MG TABLET PO SCH (11:15)
[2023-05-05] MEDS: CLOPIDOGREL BISULFATE 75 MG TABLET (FP) PO SCH (11:15)
[2023-05-05] MEDS: MEMANTINE HCL 10 MG TABLET (FP) PO SCH (11:15)
[2023-05-05] MEDS: PANTOPRAZOLE 40 MG TABLET PO SCH (11:16)
[2023-05-05] MEDS: oxyCODONE HCL 5 MG TABLET PO PRN ×2 (11:16→18:48)
[2023-05-05] MEDS: CEFTRIAXONE 1 GM in DEXTROSE 5%-WATER - 50 ML IVPB SCH (11:16)
[2023-05-05 18:25] VITALS: RESP 18
[2023-05-05] MEDS: ATORVASTATIN CA 40 MG TABLET (FP) PO SCH (22:37)
[2023-05-05] MEDS ORDERED: CILOSTAZOL 50 MG TABLET PO SCH ×2 (22:56→23:00)
[2023-05-06] MEDS: CILOSTAZOL 100 MG TABLET PO SCH ×3 (00:52→21:52)
[2023-05-06] MEDS: ENOXAPARIN NA (PORCINE) 30 MG/0.3 ML DISP.SYRIN SQ SCH ×2 (00:53→14:35)
[2023-05-06] MEDS: FERROUS SO4 325 MG TABLET (FP) PO SCH ×3 (05:22→21:52)
[2023-05-06] MEDS: INSULIN SLIDING SCALE (NOVOLOG) 1 VIAL SQ SCH ×4 (06:00→21:50)
[2023-05-06] MEDS: CEFTRIAXONE 1 GM in DEXTROSE 5%-WATER - 50 ML IVPB SCH (08:57)
[2023-05-06] MEDS: CARVEDILOL 12.5 MG TABLET (FP) PO SCH ×3 (10:33→22:00)
[2023-05-06] MEDS: CLOPIDOGREL BISULFATE 75 MG TABLET (FP) PO SCH (10:34)
[2023-05-06] MEDS: ASPIRIN COATED 81 MG TABLET.EC PO SCH (10:34)
[2023-05-06] MEDS: PANTOPRAZOLE 40 MG TABLET PO SCH (10:35)
[2023-05-06] MEDS: DOCUSATE SODIUM 100 MG CAPSULE (FP) PO SCH (10:35)
[2023-05-06] MEDS: MEMANTINE HCL 10 MG TABLET (FP) PO SCH (10:35)
[2023-05-06] MEDS: HYDROCHLOROTHIAZIDE 25 MG TABLET (FP) PO SCH (10:36)
[2023-05-06] MEDS: LISINOPRIL 10 MG TABLET PO SCH (10:37)
[2023-05-06] MEDS ORDERED: SODIUM CHLORIDE 1,000 ML IV SCH (14:30)
[2023-05-06] MEDS ORDERED: ACETAMINOPHEN 1000 MG/100 ML BAG IVPB ONE (17:51)
[2023-05-06] MEDS: oxyCODONE HCL 5 MG TABLET PO PRN (21:51)
[2023-05-06] MEDS: ATORVASTATIN CA 40 MG TABLET (FP) PO SCH (21:52)
[2023-05-07] MEDS: ENOXAPARIN NA (PORCINE) 30 MG/0.3 ML DISP.SYRIN SQ SCH ×2 (03:03→13:44)
[2023-05-07] MEDS: FERROUS SO4 325 MG TABLET (FP) PO SCH ×3 (07:00→22:04)
[2023-05-07] MEDS: INSULIN SLIDING SCALE (NOVOLOG) 1 VIAL SQ SCH ×4 (07:04→21:54)
[2023-05-07] MEDS: PANTOPRAZOLE 40 MG TABLET PO SCH (09:37)
[2023-05-07] MEDS: CLOPIDOGREL BISULFATE 75 MG TABLET (FP) PO SCH (09:37)
[2023-05-07] MEDS: MEMANTINE HCL 10 MG TABLET (FP) PO SCH (09:37)
[2023-05-07] MEDS: DOCUSATE SODIUM 100 MG CAPSULE (FP) PO SCH (09:37)
[2023-05-07] MEDS: CARVEDILOL 12.5 MG TABLET (FP) PO SCH ×2 (09:38→22:04)
[2023-05-07] MEDS: CEFTRIAXONE 1 GM in DEXTROSE 5%-WATER - 50 ML IVPB SCH (09:38)
[2023-05-07] MEDS: CILOSTAZOL 100 MG TABLET PO SCH ×2 (09:38→22:04)
[2023-05-07] MEDS: ASPIRIN COATED 81 MG TABLET.EC PO SCH (09:38)
[2023-05-07] MEDS: SODIUM CHLORIDE 1,000 ML IV SCH ×2 (11:18→21:48)
[2023-05-07] MEDS: oxyCODONE HCL 5 MG TABLET PO PRN (13:07)
[2023-05-07] MEDS: ATORVASTATIN CA 40 MG TABLET (FP) PO SCH (22:04)
[2023-05-08] MEDS: ENOXAPARIN NA (PORCINE) 30 MG/0.3 ML DISP.SYRIN SQ SCH ×2 (02:13→13:43)
[2023-05-08] MEDS: oxyCODONE HCL 5 MG TABLET PO PRN ×2 (02:36→10:16)
[2023-05-08] MEDS: INSULIN SLIDING SCALE (NOVOLOG) 1 VIAL SQ SCH ×3 (06:56→18:28)
[2023-05-08] MEDS: FERROUS SO4 325 MG TABLET (FP) PO SCH ×2 (07:03→13:43)
[2023-05-08] MEDS: CEFTRIAXONE 1 GM in DEXTROSE 5%-WATER - 50 ML IVPB SCH (08:33)
[2023-05-08] MEDS: DOCUSATE SODIUM 100 MG CAPSULE (FP) PO SCH (09:54)
[2023-05-08] MEDS: PANTOPRAZOLE 40 MG TABLET PO SCH (09:54)
[2023-05-08] MEDS: MEMANTINE HCL 10 MG TABLET (FP) PO SCH (09:54)
[2023-05-08] MEDS: ASPIRIN COATED 81 MG TABLET.EC PO SCH (09:54)
[2023-05-08] MEDS: CLOPIDOGREL BISULFATE 75 MG TABLET (FP) PO SCH (09:55)
[2023-05-08] MEDS: CILOSTAZOL 100 MG TABLET PO SCH (09:55)
[2023-05-08] MEDS: CARVEDILOL 12.5 MG TABLET (FP) PO SCH (09:55)
[2023-05-08] MEDS ORDERED: oxyCODONE HCL 5 MG TABLET PO ONE (13:25)
[2023-05-08] MEDS ORDERED: oxyCODONE HCL 5 MG TABLET PO PRN (13:26)
[2023-05-08 15:40] VITALS: BP 126/59; PULSE 88; TEMP 99.3
== END 2023-05-08 18:20 | disposition home or self-care (01) ==
LOC: JER 20:57 → INTOOBSV 05-05 00:27 → JERBED 05-05 00:27 → OBSVTOIN 05-05 00:27 → J5S 05-05 09:39
PROVIDERS: ADMIT Internal Medicine; ATTEND Internal Medicine
PROC: 3E033NZ Introduction of Analgesics, Hypnotics, Sedatives into Peripheral Vein, Percutaneous Approach (ICD-10-PCS; principal; 2023-05-05)
PROC: 3E03329 Introduction of Other Anti-infective into Peripheral Vein, Percutaneous Approach (ICD-10-PCS; 2023-05-05)
PROC: 3E023GC Introduction of Other Therapeutic Substance into Muscle, Percutaneous Approach (ICD-10-PCS; 2023-05-05)
PROC: 3E0337Z Introduction of Electrolytic and Water Balance Substance into Peripheral Vein, Percutaneous Approach (ICD-10-PCS; 2023-05-05)
DX: U07.1 COVID-19 (principal); S82.61XA Displaced fracture of lateral malleolus of right fibula, initial encounter for closed fracture; X58.XXXA Exposure to other specified factors, initial encounter; Y93.89 Activity, other specified; Y92.099 Unspecified place in other non-institutional residence as the place of occurrence of the external cause; E78.5 Hyperlipidemia, unspecified; E11.9 Type 2 diabetes mellitus without complications; I25.10 Atherosclerotic heart disease of native coronary artery without angina pectoris; I11.0 Hypertensive heart disease with heart failure; G30.9 Alzheimer's disease, unspecified; F03.90 Unspecified dementia, unspecified severity, without behavioral disturbance, psychotic disturbance, mood disturbance, and anxiety; Z95.0 Presence of cardiac pacemaker; D50.9 Iron deficiency anemia, unspecified
CPT/HCPCS: 0241U-QW; 36415; 70450-TC; 71046-TC-FY; 72125-TC; 73610-TC-RT-FY; 73630-TC-RT-FY; 80048; 80053; 81003; 82962; 83735; 84484; 85025; 85027; 87086; 87186; 93005; 93010; 96365; 96372; 96375; 96376; 97116-GP; 97161-GP; 99285-25; G0378